=== PATIENT | male | born 1940 | race Caucasian/White ===

== ENCOUNTER → 2017-12-04 | Outpatient (CLI) | payer OTHER ==
[~2017-12-04] MED LIST: ACETAMINOPHEN-1 EAC1 PO; AMBIEN PO; FLOMAX PO; MEDROL DOSPAK21 TAB PO; NORCO 5-325 TA1 EACH PO; PERCOCET 5-3251 EACH PO; SIMVASTATIN
[2017-12-04 09:14] LABS: CREATININE 1.1 mg/dL (0.6-1.3)
== END ==
LOC: M.CT 08:00 → M.LAB 08:30
PROVIDERS: Urology
DX: C64.9 Malignant neoplasm of unspecified kidney, except renal pelvis (principal)

== ENCOUNTER → 2018-05-13 | Outpatient (CLI) | payer OTHER | LOC: M.RAD 14:29 | DX: R05 Cough (principal); Z87.891 Personal history of nicotine dependence; Z85.528 Personal history of other malignant neoplasm of kidney ==

== ENCOUNTER → 2019-10-10 | Outpatient (CLI) | payer OTHER | LOC: M.RAD 12:28 | DX: J98.4 Other disorders of lung (principal); R91.8 Other nonspecific abnormal finding of lung field ==

== ENCOUNTER 2020-03-04 13:15 | Inpatient (IN) | payer OTHER ==
[~2020-03-04] VITALS: Ht 172.7 cm; Wt 79.2 kg
[~2020-03-04 13:15] MED LIST changes: -FLOMAX PO; +FLOMAX0.4 MG PO; -SIMVASTATIN; +ZOCOR20 MG PO
[2020-03-04 13:18] VITALS: BP 178/80
--- NOTE | 2020-03-04 13:23 | NUR ---
PT REPORTS NEGATIVE COVID TEST 2 WEEKS AGO
[2020-03-04] MEDS ORDERED: LEVAQUIN 500 M500 M3 PO (13:29)
--- NOTE | 2020-03-04 13:29 | NUR ---
PT WAS ON LEVOFLOXACIN, DOXYCYCLINE, AND PREDNISONE BUT WAS TOLD BY PHYSICIAN TO STOP A FEW DAYS AGO
[2020-03-04 13:43] LABS: ABSOLUTE EOSINOPHILS 0.2 thou/uL (0.0-0.7); ABSOLUTE LYMPHOCYTES 1.2 thou/uL (0.8-5.3); ABSOLUTE MONOCYTES 0.7 thou/uL (0.0-1.2); ABSOLUTE NEUTROPHILS 7.5 thou/uL (1.6-8.1); BASOPHILS 0.2 %; EOSINOPHILS 1.9 %; HEMATOCRIT 41.7 % (42.0-52.0); HEMOGLOBIN 14.3 gm/dL (14.0-18.0); LYMPHOCYTES 12.3 %; MCH 30.4 pg (26.0-34.0); MCHC 34.3 g/dL (28.0-37.0); MCV 88.5 fL (80.0-100.0); MONOCYTES 7.1 %; NUCLEATED RBCS 0 /100WBC; PLATELET COUNT* 142 thou/uL (150-400); POLYS 78.5 %; RBC 4.72 mil/uL (4.50-6.00); RDW-CV 14.3 % (10.5-14.5); WBC 9.6 thou/uL (4.0-11.0)
[2020-03-04 13:54] LABS: CALCIUM 8.3 mg/dL (8.5-10.1); CREATININE 1.1 mg/dL (0.6-1.3)
[2020-03-04 13:56] LABS: APTT 23.5 Seconds (25.0-31.3); PROTIME 10.7 Seconds (9.20-11.50)
[2020-03-04 14:08] LABS: ALBUMIN 3.1 g/dL (3.4-5.0); CK-MB MASS 0.8 ng/mL (<0.5-3.6); MAGNESIUM 2.1 mg/dL (1.8-2.4); TOTAL BILIRUBIN 0.4 mg/dL (<0.1-1.0); TOTAL PROTEIN 6.6 g/dL (6.4-8.2)
[2020-03-04 19:18] VITALS: BP 141/70
[2020-03-04 19:58] VITALS: BP 141/70
[2020-03-04 20:30] VITALS: BP 147/76
[2020-03-05] VITALS: BP 147/66
[2020-03-05 05:44] VITALS: BP 151/76
[2020-03-05 05:46] LABS: HEMATOCRIT 44.2 % (42.0-52.0); HEMOGLOBIN 14.9 gm/dL (14.0-18.0); MCH 30.1 pg (26.0-34.0); MCHC 33.7 g/dL (28.0-37.0); MCV 89.1 fL (80.0-100.0); MPV 8.6 fl. (7.2-11.1); NUCLEATED RBCS 0 /100WBC; PLATELET COUNT* 163 thou/uL (150-400); RBC 4.96 mil/uL (4.50-6.00); RDW-CV 14.4 % (10.5-14.5)
[2020-03-05 06:11] LABS: ALBUMIN 3.1 g/dL (3.4-5.0); CALCIUM 8.5 mg/dL (8.5-10.1); POTASSIUM 3.8 mmol/L (3.5-5.1); TOTAL BILIRUBIN 0.4 mg/dL (<0.1-1.0); TOTAL PROTEIN 6.9 g/dL (6.4-8.2)
[2020-03-05 06:45] LABS: ABSOLUTE LYMPHOCYTES 0.5 thou/uL (0.8-5.3); ABSOLUTE NEUTROPHILS 9.5 thou/uL (1.6-8.1)
[2020-03-05 06:46] LABS: PLATELET ESTIMATE ADEQUATE
--- NOTE | 2020-03-05 07:05 | NUR ---
CHANGE OF SHIFT BEDSIDE REPORT GIVEN PATIENT SEEN AT BEDSIDE, IN BED ASLEEP ASSUMED PATIENT CARE
[2020-03-05 08:00] VITALS: BP 166/71
--- NOTE | 2020-03-05 13:18 | NUR ---
Pt is A&O. Resides at home with his and dtr. Independent. No DME. No hx of HH or SNF. Goal is home at dc, no needs anticipated.
--- NOTE | 2020-03-05 15:38 | EKG ---
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 : 1940 Requested By: Christophe Sauer Order Number: [id number] MD: Fabricio Vigil Measurements Intervals [place] Rate: 83 P: 25 MA: 154 QRS: -46 QRSD: 84 T: 55 QT: 362 QTc: 426 Interpretive Statements Sinus rhythm LAD, consider left anterior fascicular block Abnormal R-wave progression, late transition No previous ECG available for comparison Electronically Signed On 03-05-2020 15:37:39 CDT by Fabricio Vigil [email or web address] <ELECTRONICALLY SIGNED> By: Fabricio Vigil MD, [facility] 03/05/20 1537 1321 1321 Fabricio Vigil MD, [facility] /EPI
[2020-03-05 17:48] VITALS: BP 153/67
[2020-03-05 17:57] VITALS: BP 149/62
[2020-03-05 20:00] VITALS: BP 160/64
[2020-03-06] VITALS: BP 143/75
[2020-03-06 04:00] VITALS: BP 151/75
--- NOTE | 2020-03-06 05:08 | NUR ---
PT SLEPT MOST OF SHIFT. ASSESSMENT DOCUMENTED. MEDS GIVEN PER E-MAR. IVS PATENT. NO REPORTS OF PAIN. PT ON 1L NC THIS SHIFT. MRSA SWAB OBTAINED. WILL CONTINUE WITH PLAN OF CARE.
[2020-03-06 08:00] VITALS: BP 154/69
[2020-03-06] MEDS ORDERED: CEFDINIR300 MG PO (09:54)
[2020-03-06] MEDS ORDERED: MUCINEX600 MG PO (09:54)
[2020-03-06 11:06] VITALS: BP 154/69
[2020-03-06 11:08] LABS: ANA INTERPRETATION Negative (Negative); ANTI-DNA SCREEN <1 IU/mL (0-9); ANTI-RNP <0.2 AI (0.0-0.9)
--- NOTE | 2020-03-06 11:28 | NUR ---
PT VS CHARTED, A&0X4, NC@1L, UP AD LUBNA, HOURLY ROUNDING PERFORMED, POSSESSIONS AND CALL LIGHT WITHIN REACH, KOBUK, REC DISCHARGE ORDERS, REVIEWED WITH PATIENT, SCRIPTS AND CARENOTES GIVEN, QUESTIONS ANSWERED, PATIENT TAKEN IN WHEELCHAIR TO EXIT BY NURSING STAFF, PICKED UP BY DAUGHTER IN FAMILY CAR
[2020-03-06 12:04] VITALS: BP 134/65
--- NOTE | 2020-03-07 15:54 | CON ---
[address] [address] CONSULTATION Name: QUIQUE SCHULTZ Room: [address] IN M.R.#: [id number] Admission: 03/04/20 Attend Phys: Nelson Bergman Discharge: 03/06/20 Date of : 40 Report #: [id number] THIS REPORT FOR: //name// cc: Musa Maurer Russell J. DO ~ THIS REPORT FOR: //name// CC: Musa Chambers DATE OF SERVICE: 03/05/2020 CONSULT REQUESTED BY: Dr. Chambers. INDICATION FOR CONSULTATION: Persistent pulmonary infiltrate. HISTORY OF PRESENT ILLNESS: An 80-year-old gentleman who has a history of a right upper lobe peripheral infiltrate. I have a chest x-ray available from 09/2019, which is about 6 months ago, and this infiltrate is subtle, but certainly present on this x-ray. His previous x-rays do not show this infiltrate from 2018. The patient since then has been seen by Dr. Rodrigues and has received broad-spectrum antibiotics as an outpatient. He was treated with doxycycline in January and subsequently has received levofloxacin as well. According to the record at some point, the patient also received a Z-Marquis. The patient was not able to recall previous therapies since September. The patient reports that he has had CAT scans performed at diagnostic imaging and that based on these CAT scans, he was recommended a biopsy likely a CT-guided biopsy towards the end of this month; however, the patient due to persistent symptoms decided to come to this hospital. The patient appears to have presented with persistent complaints and not an acute deterioration in his complaints. He does report shortness of breath. He does report cough, there is not much sputum. He per the records also initially had chest pain; however, the patient did not have this complaint for me at this time. He does not have upper respiratory complaints. There is no swelling of lower extremities. The patient has had some sleep complaints, which are longstanding. The patient is hard of hearing and provides a limited history or review of systems for 12 points, however, is negative except as mentioned above. PAST MEDICAL HISTORY: Hyperlipidemia, prostatism, right eye cataract, retinal surgery. He has had pneumonia in the past as well. At one point, had a renal biopsy, the reason why renal biopsy is not known to me at this time. Persistent infiltrates as mentioned above. SOCIAL HISTORY: He denies any history of smoking for the last 40 years. He says he was an occasional smoker before. No known history of heavy alcohol use [place] [address] CONSULTATION Name: QUIQUE SCHULTZ Room: [address] IN M.R.#: [id number] Admission: 03/04/20 Attend Phys: Nelson Bergman Discharge: 03/06/20 Date of : 40 Report #: [id number] CURRENT MEDICATIONS: List in [facility] reviewed. HOME MEDICATIONS: List also in [facility] reviewed, also see discussion above. ALLERGIES: NAPROXEN. PHYSICAL EXAMINATION: GENERAL: He is alert, awake and oriented, does not appear to be in any distress at this time. VITAL SIGNS: Has a pulse of 78 and a blood pressure of 166/71. His O2 saturation is maintained in the low 90s with a respiratory rate around 16-18. He is afebrile with a temperature of 36.4. Body mass index is 26.6. HEENT: Head is normocephalic and atraumatic. Pupils are equal and reactive. There is no throat erythema. Airway is Mallampati 3. NECK: Does not show raised JVP, asymmetry, mass or lymph nodes. CHEST: Symmetrical expansion on inspection and palpation. On auscultation, chest is essentially clear. HEART: Regular, no murmur. ABDOMEN: Soft and nontender. EXTREMITIES: Lower extremities, no edema, no calf tenderness. SKIN: Dry and intact. NEUROLOGICAL: He did move all extremities bilaterally, equally and spontaneously. There is no focal deficit identified. LABORATORY DATA: The patient's CT chest is reviewed and I in fact called and discussed with radiologist as well. There is an extensive peripheral infiltrate in the right lung, primarily in the right upper lobe. Compared with the x-ray performed in September, there is significant worsening in this infiltrate. I do not have other imaging he has had performed at diagnostic imaging in between available at this time. The patient's CBC as well as chemistries are in [facility] and these are reviewed. Coagulation studies also in [facility] reviewed. There is an OLIVER profile, which is pending. CT chest as above does not show any evidence of pulmonary emboli. His D-dimer is also not elevated. ASSESSMENT AND PLAN: 1. Persistent right upper lobe infiltrate. The location of this infiltrate is such that I do not feel that it will be possible to biopsy it using a regular bronchoscopy. This infiltrate could, however, be approached for biopsy either via CT-guided biopsy or with bronchoscopy with navigation. A regular bronchoscopy, however, could be done to obtain cultures. I did review with our radiologist and I requested that we obtain films from diagnostic imaging electronically and I am told that we would likely have these images available tomorrow. I will review these images and also discuss further with the radiologist and then plan as to how to proceed further. At this time, considering that the possibility of an adenocarcinoma in situ, which was [facility] [address] [place] [address] CONSULTATION Name: QUIQUE SCHULTZ Ilya Room: [address] IN [facility].#: [id number] Admission: 03/04/20 Attend Phys: Nelson Bergman Discharge: 03/06/20 Date of : 40 Report #: [id number] previously called bronchoalveolar cell carcinoma, needs to be considered. Therefore, I am inclined to request a CT-guided biopsy; however, we will review films first tomorrow and then advise further. Meanwhile, we will continue with current broad-spectrum antibiotics. 2. Shortness of breath, I agree with corticosteroids; however, I did cut down the dose and will add nebulized bronchodilators. 3. Deep vein thrombosis prophylaxis. I suggest sequential compression devices as well as ambulation. If we do not proceed with a biopsy immediately, then I will go ahead and order Lovenox. Thanks for this consultation. <ELECTRONICALLY SIGNED> By: Nando Temple MD 03/07/20 1554 1659 2024Apablo Temple MD /nt
--- NOTE | 2020-03-15 14:35 | NUR ---
During P2P Dr Gricelda KELLOGG would not approve Inpatient rate but Stated the case can be billed as Observation.
[2020-03-15] MEDS ORDERED: CIPRO500 M1 PO (14:37)
[2020-03-15] MEDS ORDERED: DORYX MPC120 MG PO (14:38)
[2020-03-15] MEDS ORDERED: PREDNISONE 5 MG5 M1 (14:38)
[2020-03-15] MEDS ORDERED: XANAX1 MG PO (14:39)
[2020-03-15] MEDS ORDERED: CARDURA4 MG PO (14:39)
[2020-03-15] MEDS ORDERED: COZAAR 25 MG TA25 M1 (14:40)
[2020-03-15] MEDS ORDERED: PROSCAR 5MG TABL5 M1 PO (14:40)
[2020-03-15] MEDS ORDERED: LOVASTATIN 20 M20 MG PO (14:40)
[2020-03-15] MEDS ORDERED: SERTRALINE HCL100 MG PO (14:40)
[2020-03-20] MEDS ORDERED: FLORASTOR250 MG PO (15:33)
[2020-03-20] MEDS ORDERED: ACETYLCYST200 MG/1 M PO (15:33)
[2020-03-20] MEDS ORDERED: IPRAT-ALBUT 0.5-3 ML INH (15:33)
[2020-03-20] MEDS ORDERED: PANTOPRAZOLE SO40 M1 PO (15:33)
[2020-03-20] MEDS ORDERED: LEVAQUIN 7750 MG/152 IV (15:33)
[2020-03-22] MEDS ORDERED: COMBIVENT RESPIM4 GM INH (16:31)
[2020-03-22] MEDS ORDERED: MEDROLDOSEPACK PO (16:31)
== END 2020-03-06 14:45 | disposition home or self-care (01) | DRG 193 ==
LOC: M.ERS 13:15 → M.2W 15:34 → M.TBA-ER 15:34 → M.2W 20:27
PROVIDERS: Family Medicine; Pediatrics; ADMIT Internal Medicine; ATTEND Internal Medicine
DX: J15.9 Unspecified bacterial pneumonia (principal); J96.01 Acute respiratory failure with hypoxia; D02.20 Carcinoma in situ of unspecified bronchus and lung; E78.5 Hyperlipidemia, unspecified; N40.0 Benign prostatic hyperplasia without lower urinary tract symptoms; E78.00 Pure hypercholesterolemia, unspecified; Z98.41 Cataract extraction status, right eye; Z87.01 Personal history of pneumonia (recurrent); Z79.899 Other long term (current) drug therapy; Z88.6 Allergy status to analgesic agent

== ENCOUNTER → 2020-03-12 | Outpatient (CLI) | payer OTHER ==
[~2020-03-12] MED LIST changes: +ACETYLCYST200 MG/1 M PO; +CARDURA4 MG PO; +CEFDINIR300 MG PO; +CIPRO500 M1 PO; +COMBIVENT RESPIM4 GM INH; +COZAAR 25 MG TA25 M1; +DORYX MPC120 MG PO; +FLORASTOR250 MG PO; +IPRAT-ALBUT 0.5-3 ML INH; +LEVAQUIN 500 M500 M3 PO; +LEVAQUIN 7750 MG/152 IV; +LOVASTATIN 20 M20 MG PO; +MEDROLDOSEPACK PO; +MUCINEX600 MG PO; +PANTOPRAZOLE SO40 M1 PO; +PREDNISONE 5 MG5 M1; +PROSCAR 5MG TABL5 M1 PO; +SERTRALINE HCL100 MG PO; +XANAX1 MG PO
== END ==
LOC: M.CT 08:23
PROVIDERS: ATTEND Internal Medicine Critical Care Medicine
DX: K80.20 Calculus of gallbladder without cholecystitis without obstruction (principal); J18.9 Pneumonia, unspecified organism

== ENCOUNTER → 2020-03-28 | Outpatient (CLI) | payer OTHER ==
[~2020-03-28] MED LIST changes: +FLUCONAZOLE 10100 MG PO; +LEVAQUIN 500 M500 M1 PO; +PREDNISONE 10 M10 MG PO
[2020-03-28 13:40] LABS: HEMATOCRIT 43.5 % (42.0-52.0); MCHC 34.5 g/dL (28.0-37.0); MCV 87.1 fL (80.0-100.0); MPV 7.7 fl. (7.2-11.1); RDW-CV 14.2 % (10.5-14.5); WBC 12.2 thou/uL (4.0-11.0)
[2020-03-28 13:47] LABS: APTT 23.8 Seconds (25.0-31.3); PROTIME 10.7 Seconds (9.20-11.50)
--- NOTE | 2020-03-30 17:10 | PATH ---
[address] [address] PATHOLOGY RPT PROCEDURE Name: QUIQUE CAMACHO [facility] [id number] Admission: 03/28/20 Date of : 40 Discharge: Report #: [id number] Path Case #: [id number] [facility] Accession Number: [id number] . 01 Material submitted: . lung - RIGHT LUNG MASS. Modifiers: right . 01 Clinical history: . Adenocarcinoma question, lung mass . 02 Diagnosis: "R lung mass", needle biopsy: - ADENOCARCINOMA, WELL-DIFFERENTIATED. (SEE COMMENT) (CLW:dusty; 03/30/2020) S 03/30/2020 1427 Local . 02 Comment: The adenocarcinoma has a focal lepidic pattern. Clinical and radiographic correlation is recommended. The case is co-review with Dr. Arian Eugene. The case is discussed with Kerrie in the office of Dr. Musa Maurer on 03/30/2020 at approximately 2:00 PM. . . 02 Electronically signed: . Tasha Neville MD, Pathologist NPI- [id number] . 01 Gross description: . The specimen is received in formalin, labeled "Quique Camacho R lung mass" and consists of multiple delicate needle cores of mariscal-pink tissue measuring 1.1 x 0.3 x 0.1 cm in aggregate which are entirely submitted in A1. (SDY; 03/29/2020) SYU/SYU 03/29/2020 1334 Local . 02 Pathologist provided ICD-10: C34.91 . 02 CPT . 571249 Specimen Comment: A courtesy copy of this report has been sent to [phone], [phone] Specimen Comment: [id number] Specimen Comment: Report sent to / DR MAURER Performed at: [address], [place] [id number] MD Musa Harley MD Phone: [phone] [place] [address] PATHOLOGY RPT PROCEDURE Name: QUIQUE CAMACHO Room: [facility]DA Bee#: [id number] Admission: 03/28/20 Date of : 40 Discharge: Report #: [id number] Path Case #: [id number] Performed at: 02 [facility] [address], [place], [place] [id number] MD Kan Cobb MD Phone: [phone]
== END ==
LOC: M.CT 03-20 16:19 → M.INT 03-26 08:30
PROVIDERS: Radiology Diagnostic Radiology; ATTEND Radiology Vascular & Interventional Radiology
DX: R91.8 Other nonspecific abnormal finding of lung field (principal); C34.91 Malignant neoplasm of unspecified part of right bronchus or lung; J44.1 Chronic obstructive pulmonary disease with (acute) exacerbation; Z79.899 Other long term (current) drug therapy; Z98.890 Other specified postprocedural states

== ENCOUNTER 2020-04-04 13:37 | Inpatient (IN) | payer OTHER ==
[~2020-04-04] VITALS: Ht 172.7 cm; Wt 86.2 kg
--- NOTE | ~2020-04-04 | CON ---
[address] [address] CONSULTATION Name: QUIQUE SCHULTZ Room: [address] IN M.R.#: [id number] Admission: 04/04/20 Attend Phys: Nelson Bergman Discharge: Date of : 40 Report #: [id number] THIS REPORT FOR: //name// cc: Musa Maurer Russell J. DO ~ THIS REPORT FOR: //name// CC: Musa Chambers DATE OF SERVICE: 04/08/2020 REASON FOR CONSULTATION: Lung cancer. 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 He apparently had bronchoscopy done recently by Dr. Temple, wash showed malignant cells, most likely non-small cell lung cancer. He also has right lung mass. Biopsy was done for definite diagnosis. CT-guided biopsy on 04/05/2020 was done. Pathology shows well-differentiated adenocarcinoma. Apparently, he developed progressive shortness of breath. He is admitted to the hospital with pneumothorax post procedure. He had a chest tube placed. Oncology consult is requested. The patient is not referred to oncologist yet. He is doing okay. He does not have complaints of weight loss. Denies hemoptysis. Denies headaches. PAST MEDICAL HISTORY: Significant for hyperlipidemia. 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 SOCIAL HISTORY: . His is a patient of mine. He is an occasional smoker, discontinued smoking 4 days ago. Does not drink alcohol excessively. FAMILY HISTORY: Noncontributory. PHYSICAL EXAMINATION: GENERAL: Reveals a well-developed, well-nourished man, not in acute distress. VITAL SIGNS: Blood pressure 156/87, heart rate is 76, temperature 97.6, respirations 16. HEENT: Does not reveal thrush. HEART: Normal S1, S2. LUNGS: Coarse bilaterally. ABDOMEN: Soft. LYMPHATICS: There is no supraclavicular or axillary lymphadenopathy. MENTAL STATUS: [place] [address]. [place] [address] CONSULTATION Name: SONIAQUIQUE SABILLON Ilya Room: [address]#: [id number] Admission: 04/04/20 Attend Phys: Nelson Bergman Discharge: Date of : 40 Report #: [id number] SKIN: No rash. LABORATORY DATA: White count 16.0, hemoglobin 12.6, platelets 196. Sodium 141, potassium 4.6, BUN 22, creatinine 1.3. COVID-19 test negative. Biopsy of right lung mass shows well-differentiated adenocarcinoma. ASSESSMENT AND PLAN: Non-small cell lung cancer. We will order a PET scan as an outpatient when the patient is discharged from the hospital. Dr. Giron will follow up the patient tomorrow. Molecular studies will be ordered for biopsy. Thank you very much for allowing us to participate in the care of this patient. By: [id number] [id number] Dwyer MD /nt
[2020-04-04 13:45] VITALS: BP 197/82
[2020-04-04 14:04] LABS: BE 1.3 mmol/L (-2 to +3); pH 7.465 (7.340-7.450)
[2020-04-04 14:38] LABS: ABSOLUTE BASOPHILS 0.1 thou/uL (0.0-0.2); ABSOLUTE EOSINOPHILS 0.3 thou/uL (0.0-0.7); ABSOLUTE LYMPHOCYTES 0.8 thou/uL (0.8-5.3); ABSOLUTE MONOCYTES 0.7 thou/uL (0.0-1.2); ABSOLUTE NEUTROPHILS 9.6 thou/uL (1.6-8.1); BASOPHILS 0.8 %; EOSINOPHILS 2.5 %; HEMATOCRIT 40.9 % (42.0-52.0); HEMOGLOBIN 13.7 gm/dL (14.0-18.0); LYMPHOCYTES 7.2 %; MCH 29.7 pg (26.0-34.0); MCHC 33.5 g/dL (28.0-37.0); MCV 88.5 fL (80.0-100.0); MONOCYTES 5.7 %; MPV 8.3 fl. (7.2-11.1); NUCLEATED RBCS 0 /100WBC; PLATELET COUNT* 183 thou/uL (150-400); POLYS 83.8 %; RBC 4.62 mil/uL (4.50-6.00); RDW-CV 14.5 % (10.5-14.5); WBC 11.5 thou/uL (4.0-11.0)
[2020-04-04 14:50] LABS: CALCIUM 8.8 mg/dL (8.5-10.1); CREATININE 1.2 mg/dL (0.6-1.3); POTASSIUM 4.4 mmol/L (3.5-5.1)
[2020-04-04 14:51] LABS: APTT 22.9 Seconds (25.0-31.3); PROTIME 10.7 Seconds (9.20-11.50)
[2020-04-04 15:04] LABS: TOTAL BILIRUBIN 0.5 mg/dL (<0.1-1.0); TOTAL PROTEIN 6.8 g/dL (6.4-8.2)
[2020-04-04 18:18] VITALS: BP 104/49
[2020-04-04 20:14] VITALS: BP 141/65
--- NOTE | 2020-04-04 20:52 | NUR ---
PT'S JOHNSON, CHANGE, NAIL CLIPPERS, AND KNIVES TO BE GIVEN TO SECURITY.
[2020-04-04 21:00] VITALS: BP 126/61
[2020-04-04 22:00] VITALS: BP 139/71
[2020-04-04 23:01] VITALS: BP 147/69
[2020-04-05] VITALS (22 sets, daily range): BP systolic 120–150; BP diastolic 50–72
[2020-04-05 05:05] LABS: HEMATOCRIT 39.5 % (42.0-52.0); HEMOGLOBIN 13.8 gm/dL (14.0-18.0); MCH 30.3 pg (26.0-34.0); MCHC 34.8 g/dL (28.0-37.0); MCV 87.1 fL (80.0-100.0); MPV 8.2 fl. (7.2-11.1); NUCLEATED RBCS 0 /100WBC; PLATELET COUNT* 194 thou/uL (150-400); RBC 4.54 mil/uL (4.50-6.00); RDW-CV 14.3 % (10.5-14.5); WBC 8.5 thou/uL (4.0-11.0)
[2020-04-05 05:18] LABS: ALBUMIN 2.9 g/dL (3.4-5.0); CALCIUM 8.3 mg/dL (8.5-10.1); CREATININE 1.3 mg/dL (0.6-1.3); MAGNESIUM 1.9 mg/dL (1.8-2.4); POTASSIUM 3.7 mmol/L (3.5-5.1); TOTAL BILIRUBIN 0.5 mg/dL (<0.1-1.0); TOTAL PROTEIN 6.7 g/dL (6.4-8.2)
[2020-04-05 05:52] LABS: ABSOLUTE LYMPHOCYTES 0.5 thou/uL (0.8-5.3); ABSOLUTE MONOCYTES 0.1 thou/uL (0.0-1.2); ABSOLUTE NEUTROPHILS 7.9 thou/uL (1.6-8.1); ANISOCYTOSIS 1+; PLATELET ESTIMATE ADEQUATE; POIKILOCYTOSIS 1+
--- NOTE | 2020-04-05 06:48 | NUR ---
PT. TRANSFER FROM TELEMETRY FLOOR TO ICU BED 1 AT 1999. ADMISSION NOT COMPLETED ON TELE FLOOR, SEE ADMISSION ASSESSMENT. ALERT AND ORIENTED MALE. COVID SPECIMAN OBTAINED BY THIS RN, AWAITING RESULTS. REMAINS IN ENHANCED PRECAUTIONS. HARD OF HEARING, HEARING AIDS WITH PATIENT BUT HE STATES "THEY DONT WORK WELL" AND CHOSE NOT TO PUT HEARING AIDS IN. PT. INCREASED TO 10L HI-JAN, DOWN TO 9L HI-JAN AT THIS TIME. WILL CONTINUE TO MONITOR.
[2020-04-05 08:28] LABS: URINE BILIRUBIN NEGATIVE (Negative); URINE BLOOD TRACE (Negative); URINE CLARITY CLEAR; URINE COLOR YELLOW; URINE GLUCOSE-RANDOM NEGATIVE (Negative); URINE KETONES 1+ (Negative); URINE LEUKOCYTES-REFLEX NEGATIVE (Negative); URINE NITRITE-REFLEX NEGATIVE (Negative); URINE PROTEIN NEGATIVE (Negative); URINE UROBILINOGEN 0.2 E.U./dl (0.2-1.0)
--- NOTE | 2020-04-05 13:20 | EKG ---
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1940 Requested By: Christophe Sauer Order Number: [id number] MD: Lj Dela Cruz Measurements Intervals [place] Rate: 96 P: 56 DC: 162 QRS: -21 QRSD: 85 T: 61 QT: 369 QTc: 467 Interpretive Statements Sinus rhythm Ventricular premature complex Borderline left axis deviation Baseline wander in lead(s) II,III,aVF,V5 Compared to ECG 03/15/2020 14:30:23 Ventricular premature complex(es) now present Electronically Signed On 04-05-2020 13:20:01 CDT by Lj Dela Cruz [email or web address] <ELECTRONICALLY SIGNED> By: Lj Dela Cruz MD, FAC 04/05/20 1320 1439 1439 Lj Dela Cruz MD, [facility] /EPI
--- NOTE | 2020-04-05 15:18 | NUR ---
ICU rounds: Chest tube placed for ride side pneumothorax. Covid pending. Lung CA dx last week. CM left VM for Pt's to complete assessment, awaiting call back.
--- NOTE | 2020-04-05 17:32 | NUR ---
PT IS A/O X4,VSS,O2 TITRATED DOWN TO 5L O2 NC.PT REMAINS TELEMETRY STATUS.RIGHT CHEST TUBE PLACED THIS AM WITH NO COMPLICATIONS-PATENT WITH SLIGHT TIDALING PRESENT.UA COLLECTED.MRSA OF NARES COLLECTED.ISOLATION MAINTAINED UNTIL COVID RESULTS.PAIN MANAGED WELL WITH PO MEDICATIONS.IV ANTIBIOTICS GIVEN.PT INFORMED OF PLAN OF CARE AND COMMUNICATES UNDERSTANDING.WILL CONTINUE TO MONITOR FOR DURATION OF SHIFT.
[2020-04-05 17:48] LABS: CALCIUM 8.9 mg/dL (8.5-10.1); CREATININE 1.5 mg/dL (0.6-1.3); POTASSIUM 3.3 mmol/L (3.5-5.1)
[2020-04-06] VITALS (22 sets, daily range): BP systolic 115–161; BP diastolic 44–82
[2020-04-06 03:40] LABS: ABSOLUTE BASOPHILS 0.1 thou/uL (0.0-0.2); ABSOLUTE LYMPHOCYTES 0.4 thou/uL (0.8-5.3); ABSOLUTE MONOCYTES 0.6 thou/uL (0.0-1.2); ABSOLUTE NEUTROPHILS 19.1 thou/uL (1.6-8.1); BASOPHILS 0.4 %; HEMATOCRIT 37.9 % (42.0-52.0); HEMOGLOBIN 12.7 gm/dL (14.0-18.0); LYMPHOCYTES 1.9 %; MCH 29.5 pg (26.0-34.0); MCHC 33.5 g/dL (28.0-37.0); MCV 88.1 fL (80.0-100.0); MONOCYTES 2.8 %; MPV 8.2 fl. (7.2-11.1); NUCLEATED RBCS 0 /100WBC; PLATELET COUNT* 202 thou/uL (150-400); POLYS 94.9 %; RDW-CV 14.6 % (10.5-14.5); WBC 20.1 thou/uL (4.0-11.0)
[2020-04-06 03:52] LABS: ALBUMIN 2.6 g/dL (3.4-5.0); CALCIUM 8.6 mg/dL (8.5-10.1); CREATININE 1.2 mg/dL (0.6-1.3); MAGNESIUM 2.2 mg/dL (1.8-2.4); POTASSIUM 4.2 mmol/L (3.5-5.1); TOTAL BILIRUBIN 0.3 mg/dL (<0.1-1.0); TOTAL PROTEIN 5.9 g/dL (6.4-8.2)
--- NOTE | 2020-04-06 07:14 | NUR ---
ASSESSMENT CHARTED. CHEST TUBE REMAINS IN PLACE, TIDALING. PATIENT'S COVID SWAB RESULTS CAME BACK NEGATIVE. AWAITING PHYSICIAN ORDERS TO D/C ISOLATION. NO SIGNIFICANT EVENTS THIS SHIFT. VSS
[2020-04-06 12:37] LABS: CHOLESTEROL 161 mg/dL (<200); HDL CHOLESTEROL 48 mg/dL (>40); LDL CHOLESTEROL 104 mg/dL (<100); SERUM ASSESSMENT Clear; TC:HDL 3.4 Ratio (Not establshd); TRIGLYCERIDE 47 mg/dL (<150); VLDL 9 mg/dL (<40)
--- NOTE | 2020-04-06 15:39 | NUR ---
ICU rounds: Tele status. Doing good. Pt on 4-5L o2. Covid negative. Pt is A&O, but [employer]. Resides at home with his and dtr. Pt wears home o2, provided through [employer]. No hx of HH or SNF. Pt states that he has lung CA. Goal is home at dc. Pt is hopeful not to have any dc needs.
--- NOTE | 2020-04-06 17:09 | NUR ---
PT IS A/O X4,VSS, REMAINS ON 6L O2 NC AND TITRATING DOWN POSSIBLE.PT HAS NON PRODUCTIVE COUGH WITH OCCASIONAL COUGHING EPISODES THAT REQUIRE A TEMPORARY INCREASE IN O2 DEMAND.NO C/O PAIN THIS SHIFT.RIGHT CHEST TUBE SECURE AND PATENT WITH SLIGHT TIDALING PRESENT-CHEST TUBE IS POSITIONAL AND HAS OCCASIONAL BUBBLES.COVID NEGATIVE AND REMOVED FROM ISOLATION PER ORDERS.FAMILY NOTIFIED OF ISOLATION DC AND TOLD THE VISITOR POLICIES.DAUGHTER IS REQUESTING THAT OVERSEES FATHERS CARE "BECAUSE SHE HAS HEARD GOOD THINGS" .PT WILL BE NPO AT MIDNIGHT FOR RENAL US TOMORROW.WILL CONTINUE TO MONITOR FOR DURATION OF SHIFT.
[2020-04-06 17:11] LABS: CALCIUM 8.2 mg/dL (8.5-10.1); CREATININE 1.1 mg/dL (0.6-1.3); POTASSIUM 4.2 mmol/L (3.5-5.1)
[2020-04-07] VITALS (16 sets, daily range): BP systolic 92–157; BP diastolic 42–98
[2020-04-07 03:58] LABS: ABSOLUTE LYMPHOCYTES 0.4 thou/uL (0.8-5.3); ABSOLUTE MONOCYTES 0.4 thou/uL (0.0-1.2); ABSOLUTE NEUTROPHILS 15.3 thou/uL (1.6-8.1); HEMATOCRIT 37.5 % (42.0-52.0); HEMOGLOBIN 12.9 gm/dL (14.0-18.0); LYMPHOCYTES 2.3 %; MCH 30.2 pg (26.0-34.0); MCHC 34.4 g/dL (28.0-37.0); MCV 87.6 fL (80.0-100.0); MONOCYTES 2.5 %; MPV 7.9 fl. (7.2-11.1); NUCLEATED RBCS 0 /100WBC; PLATELET COUNT* 196 thou/uL (150-400); POLYS 95.2 %; RBC 4.27 mil/uL (4.50-6.00); RDW-CV 15.4 % (10.5-14.5)
[2020-04-07 04:19] LABS: ALBUMIN 2.6 g/dL (3.4-5.0); CALCIUM 8.2 mg/dL (8.5-10.1); CREATININE 1.3 mg/dL (0.6-1.3); POTASSIUM 4.6 mmol/L (3.5-5.1); TOTAL BILIRUBIN 0.4 mg/dL (<0.1-1.0)
--- NOTE | 2020-04-07 07:31 | NUR ---
ASSESSMENT CHARTED. NO SIGNIFICANT EVENTS THIS SHIFT. PATIENT SLEPT COMFORTABLY ALL SHIFT
--- NOTE | 2020-04-07 18:37 | NUR ---
PT OUT OF BED, STB ASSIST, SAT IN A CHAIR WHOLE DAY. RT SIDE CHEST TUBE INSITU, -20 SUCTION CONTD. VSS. O2 SUPPORT NC 4L/MIN. TOLERATING DIET. BM x2 THIS SHIFT. REPORT GIVEN TO JOELLEN YA. UPDATED.
--- NOTE | 2020-04-08 07:31 | NUR ---
No acute event this shift. Pt still having SOA, at shift change pt on 2L high flow, O2 sat at mid 80's - bump O2 supplement to 4L, still at on low 90's. Denies pain. Had BM last night. Antibiotic given per nov. Call light within reach. Will continue to monitor.
[2020-04-08 10:24] VITALS: BP 156/87
[2020-04-08 15:08] LABS: ABSOLUTE LYMPHOCYTES 0.4 thou/uL (0.8-5.3); ABSOLUTE MONOCYTES 0.5 thou/uL (0.0-1.2); ABSOLUTE NEUTROPHILS 10.4 thou/uL (1.6-8.1); HEMATOCRIT 39.9 % (42.0-52.0); HEMOGLOBIN 13.4 gm/dL (14.0-18.0); LYMPHOCYTES 3.7 %; MCH 29.8 pg (26.0-34.0); MCHC 33.7 g/dL (28.0-37.0); MCV 88.4 fL (80.0-100.0); MONOCYTES 4.2 %; MPV 8.5 fl. (7.2-11.1); NUCLEATED RBCS 0 /100WBC; PLATELET COUNT* 188 thou/uL (150-400); POLYS 92.1 %; RBC 4.51 mil/uL (4.50-6.00); RDW-CV 15.4 % (10.5-14.5); WBC 11.3 thou/uL (4.0-11.0)
[2020-04-08 15:35] LABS: ALBUMIN 2.6 g/dL (3.4-5.0); ALKALINE PHOSPHATASE 65 U/L (46-116); ANION GAP 11 mmol/L (7-16); BUN 15 mg/dL (7-18); CALCIUM 8.6 mg/dL (8.5-10.1); CHLORIDE 102 mmol/L (98-107); CO2 28 mmol/L (21-32); CREATININE 1.1 mg/dL (0.6-1.3); GLUCOSE 154 mg/dL (70-99); NT-PRO BRAIN NAT PEPTIDE 480 pg/mL (<300); POTASSIUM 4.1 mmol/L (3.5-5.1); SGOT 19 U/L (15-37); SGPT 27 U/L (30-65); SODIUM 141 mmol/L (136-145); TOTAL BILIRUBIN 0.3 mg/dL (<0.1-1.0); TOTAL PROTEIN 5.9 g/dL (6.4-8.2)
[2020-04-08 18:10] VITALS: BP 189/91
[2020-04-08 21:54] VITALS: BP 171/81
--- NOTE | 2020-04-09 07:48 | NUR ---
PATIENT HAS RESTED OFF AND ON DURING THE NIGHT. VSS ON 4L 02 VIA NASAL CANNULA. LUNGS SOUNDS-WHEEZY AND COARSE. CHEST TUBE TO RIGHT SIDE OF CHEST IN PLACE AND SEALED. MEDICATIONS GIVEN ORDERED AND CHARTED. PATIENT UP WITH SBA TO THE BATHROOM. PATIENT HAD LARGE BOWEL MOVEMENT DURING THE NIGHT. IV IN RIGHT FOREARM-SL. IV IN LEFT FOREARM-SL. IV ABT'S GIVEN WITHOUT ANY ADVERSE SIDE EFFECTS NOTED. HOURLY ROUNDS MADE. WILL CONTINUE WITH PLAN OF CARE AND NURSING TO MONITOR.
[2020-04-09 08:19] VITALS: BP 163/78
[2020-04-09 13:59] LABS: CALCIUM 8.9 mg/dL (8.5-10.1); CREATININE 1.1 mg/dL (0.6-1.3); MAGNESIUM 2.3 mg/dL (1.8-2.4); POTASSIUM 4.5 mmol/L (3.5-5.1)
[2020-04-09 15:55] VITALS: BP 166/76
--- NOTE | 2020-04-09 17:24 | NUR ---
A&O X 4. UP TO CHAIR WITH NURSE ASSIST, TOLERATING SITTING UP WELL. IV RT AND LEFT ARM INTACT, NO S/S OF INFECTION NOTED. BOTH PATENT AND FLUSHES WITHOUT DIFFICULTY. CHEST TUBE WITHOUT DRAINAGE TODAY. CHEST TUBE CLAMPED AT 0830. CHEST TUBE SITE WITHOUT DRAINAGE. PATIENT HAS SOME SOB BUT STATES IT IS BETTER. USING 02 AT 4L PER NC. NO C/O PAIN TODAY. WILL CONTINUE TO MONITOR.
[2020-04-09 23:30] VITALS: BP 164/77
[2020-04-10 07:12] LABS: HEMATOCRIT 44.8 % (42.0-52.0); MCH 29.4 pg (26.0-34.0); MCHC 33.4 g/dL (28.0-37.0); MPV 8.3 fl. (7.2-11.1); NUCLEATED RBCS 0 /100WBC; RBC 5.08 mil/uL (4.50-6.00); RDW-CV 15.1 % (10.5-14.5); WBC 15.9 thou/uL (4.0-11.0)
[2020-04-10 07:15] LABS: PLATELET COUNT* 269 thou/uL (150-400)
[2020-04-10 07:20] LABS: CALCIUM 8.7 mg/dL (8.5-10.1); CREATININE 1.1 mg/dL (0.6-1.3); MAGNESIUM 2.1 mg/dL (1.8-2.4); POTASSIUM 3.7 mmol/L (3.5-5.1)
[2020-04-10 07:35] VITALS: BP 156/79
[2020-04-10 07:41] LABS: ABSOLUTE LYMPHOCYTES 1.7 thou/uL (0.8-5.3); ABSOLUTE MONOCYTES 0.2 thou/uL (0.0-1.2); ATYPICAL LYMPHS 1 %; METAMYELOCYTES 1 %; PLATELET ESTIMATE ADEQUATE
--- NOTE | 2020-04-10 08:12 | NUR ---
PATIENT HAS SLEPT OFF AND ON DURING THE NIGHT. VSS ON 4L 02 VIA NASAL CANNULA. MEDICATIONS GIVEN ORDERED AND CHARTED. CHEST TUBE TO RIGHT CHEST IS UNCLAMPED TO WATER SEAL WITH NO SUCTION AT THIS TIME WITH MODERATE DRAINAGE. PATIENT UP WITH SBA TO THE BATHROOM. LUNG SOUNDS ARE DIMINISHED, COARSE AND WHEEZES. PATIENT COUGHING OFF AND ON WITH MINIMAL SPUTUM. IV IN RIGHT FOREARM-SL. IV IN LEFT FOREARM-SL. IV ABT GIVEN WITHOUT ANY ADVERSE SIDE EFFECTS NOTED. PATIENT INSTRUCTED TO USE CALL LIGHT WHEN NEEDING ASSISTANCE. HOURLY ROUNDS MADE. WILL CONTINUE WITH PLAN OF CARE AND NURSING TO MONITOR.
[2020-04-10 16:00] VITALS: BP 157/71
--- NOTE | 2020-04-10 16:11 | NUR ---
PT REMAINED ALERT AND ORIENTED. PT RESTING IN CHAIR FOR MEALS. CHEST TUBE CLAMPED, POSSIBLE DC TUBE TOMORROW. FALL RISK PRECAUTIONS IN PLACE. HOURLY ROUNDING COMPLETED. WILL CONTINUE TO MONITOR.
--- NOTE | 2020-04-10 16:29 | NUR ---
[facility]UN SENT REFERRAL TO [facility]- WHO SUGGEST REFERRAL BE SENT TO [facility] D/T THEM HAVING AN EPISODIC CONTRACT W/PROVIDER. [facility] OFFERED TO [facility] REFFERAL AND CALLED TO REPORT [facility] ACCEPTED PT. D/C ORDERS NEED TO BE SENT TO [phone].
[2020-04-10 20:54] VITALS: BP 154/84
--- NOTE | 2020-04-11 05:05 | NUR ---
PT REPORTED NO PAIN OR NAUSEA. ON 5L O2. KEPT HOB ELEVATED 45 DEGREES. DEVELOPED A COUGH SINCE ARRIVING TO [facility]. IS ABLE TO GET TO RESTROOM STANDBY ASSIST. O2 SAT 92-95% ON 4-5L. RIGHT SIDE CHEST TUBE IS CLAMPED. LUNG SOUNDS DIMINISHED/COURSE. IS CONTINENT OF URINE/BOWEL. HARD OF HEARING. LAST BM 04/10/20. ALERT AND ORIENTED. PLAN IS FOR FURTHER CHEST XRAY TODAY. WILL CONTINUE TO MONITOR.
[2020-04-11 06:22] LABS: ABSOLUTE EOSINOPHILS 0.1 thou/uL (0.0-0.7); ABSOLUTE LYMPHOCYTES 1.3 thou/uL (0.8-5.3); ABSOLUTE NEUTROPHILS 10.1 thou/uL (1.6-8.1); BASOPHILS 0.4 %; EOSINOPHILS 0.5 %; HEMATOCRIT 39.9 % (42.0-52.0); HEMOGLOBIN 13.4 gm/dL (14.0-18.0); LYMPHOCYTES 10.7 %; MCH 29.3 pg (26.0-34.0); MCHC 33.5 g/dL (28.0-37.0); MCV 87.6 fL (80.0-100.0); MONOCYTES 7.9 %; MPV 7.7 fl. (7.2-11.1); NUCLEATED RBCS 0 /100WBC; PLATELET COUNT* 195 thou/uL (150-400); POLYS 80.5 %; RBC 4.56 mil/uL (4.50-6.00); RDW-CV 14.8 % (10.5-14.5); WBC 12.6 thou/uL (4.0-11.0)
[2020-04-11 06:36] LABS: CALCIUM 8.2 mg/dL (8.5-10.1); POTASSIUM 3.2 mmol/L (3.5-5.1)
[2020-04-11 07:10] VITALS: BP 146/82
[2020-04-11 16:00] VITALS: BP 158/75
--- NOTE | 2020-04-11 16:41 | NUR ---
PT REMAINED ALERT AND ORIENTED. CHEST TUBE REMOVED PER IR. FALL RISK PRECAUTIONS IN PLACE. HOURLY ROUNDING COMPLETED. WILL CONTINUE TO MONITOR.
[2020-04-11 19:54] VITALS: BP 156/91
--- NOTE | 2020-04-12 04:29 | NUR ---
PLAN IS TO DISCHARGE THURSDAY. UP AD LUBNA TO RESTROOM. ON 5L-O2. ALERT AND ORIENTED. BM YESTERDAY. NO REPORTS OF PAIN OR ISSUES. RECEIVED ALL MEDS SCHEDULED.
[2020-04-12 08:00] VITALS: BP 165/78
[2020-04-12 16:00] VITALS: BP 162/76
--- NOTE | 2020-04-12 18:29 | NUR ---
PT A&Ox4. VITALS STABLE. IV'S PATENT. UP AD LUBNA. ON 5LO2. TOLERATING DIET. DENIED PAIN. DENIED N/V. CALL LIGHT WITHIN REACH. WILL CONTINUE TO MONITOR.
[2020-04-12 20:00] VITALS: BP 171/70
[2020-04-12 20:07] LABS: CALCIUM 8.7 mg/dL (8.5-10.1); CREATININE 1.2 mg/dL (0.6-1.3); POTASSIUM 3.8 mmol/L (3.5-5.1)
--- NOTE | 2020-04-12 21:36 | CON ---
[address] [address] CONSULTATION Name: QUIQUE SCHULTZ Room: [address] IN M.R.#: [id number] Admission: 04/04/20 Attend Phys: Nelson Bergman Discharge: Date of : 40 Report #: [id number] THIS REPORT FOR: //name// cc: Musa Maurer Russell J. DO ~ THIS REPORT FOR: //name// CC: Musa Chambers DATE OF SERVICE: 04/05/2020 REQUESTING PHYSICIAN: Juan Carlos Chambers DO HISTORY OF PRESENT ILLNESS: An 80-year-old gentleman. His past medical history is as mentioned below. He had 2 recent admissions to this hospital, during which I have seen him. Please review my previous consult for further details. In summary, the patient only has a remote history of smoking. He has not been previously diagnosed with COPD. The patient has had pulmonary infiltrates, which first appeared on his chest x-ray in September. These have since then progressed despite the fact that the patient has received multiple antibiotics. The patient has recently received several antibiotics including but not limited to azithromycin, doxycycline, cefdinir as well as Levaquin. Most recently, he received Levaquin. When I had seen him previously, I had suspected that the patient's infiltrates were secondary to adenocarcinoma and not an infection and therefore, I had performed a bronchoscopy. The bronchoscopy did show non-small cell carcinoma, highly suggestive of adenocarcinoma, but the type of non-small cell carcinoma could not be determined with 100% certainty based on the bronchoscopy results and therefore, the patient did have a subsequent CT-guided biopsy which does confirm that the patient has adenocarcinoma. CT-guided biopsy was performed about a week ago. The patient had a small pneumothorax at that time and the decision was made to observe this. I have subsequently talked to the patient over the phone and he had told me that he had had some increase in shortness of breath as well as cough with sputum production. Therefore, yesterday I asked him to come see me in my office and have a chest x-ray performed. Just prior to the office visit, he did come to this hospital and had the chest x-ray performed and then came over to see me in my office. The chest x-ray shows significant extension of these infiltrates. Previously, these were primarily on the right side. These are now bilateral. Pneumothorax also was still small in size; has, however, increased in size as of yesterday. What was more significant is that when the patient walked into my office, his O2 saturation was only 77% and he was significantly short of breath. I had him sit for a while, but the highest O2 saturation I could get [place] [address] CONSULTATION Name: QUIQUE SCHULTZ Room: [address] IN .R.#: [id number] Admission: 04/04/20 Attend Phys: Nelson Bergman Discharge: Date of : 40 Report #: [id number] was 84% on room air. The patient previously has not been on supplemental oxygen. Therefore, I immediately sent him over to the Emergency Room and I called and spoke with the ER physician, Dr. Luis Sauer, as well. In the Emergency Room, the patient did have a CT chest performed, which does show an increase in size of the pneumothorax and there are extensive bilateral infiltrates. The patient overnight did require up to 9 liters of oxygen to maintain O2 saturation. He was, however, comfortable and therefore we electively placed a chest tube this morning. The patient at this time reports that he has had improvement in his shortness of breath since the chest tube was placed. He does report of cough still, he says that has been clear as well as small amounts of white sputum. He is not having chest pain. He does not have a runny nose or sore throat. He is not febrile. He does not have swelling of lower extremities. He does not have calf pain. The patient when seen yesterday was actively bronchospastic and was wheezing aloud. His wheezing has subsided as well now. I asked him 12 questions for review of systems. He answers to the negative except as above, except has had mild anxiety and minor skin lesions on his back. PAST MEDICAL HISTORY: Recently diagnosed with adenocarcinoma of the lung as above. He has had persistent infiltrates since September, but before yesterday, I feel that these have been secondary to malignancy and not infection as above. Hyperlipidemia, right eye surgery, cataract surgery, retinal surgery, previous renal biopsy performed at , has had renal cysts, prostatism, kidney stones. SOCIAL HISTORY: He reports that he was an occasional smoker, discontinued in the , has not been a smoker since then. No known history of heavy alcohol use or illegal drug use. CURRENT MEDICATIONS: List in [facility] reviewed. HOME MEDICATIONS: List in [employer] reviewed. FAMILY HISTORY: There is no pertinent family history. ALLERGIES: HE IS ALLERGIC TO OR INTOLERANT TO NAPROXEN. PHYSICAL EXAMINATION: GENERAL: He is alert, awake and oriented, does not appear to be in any distress at this time. VITAL SIGNS: He has a pulse of 89 and a blood pressure of 122/58. He is saturating 96%. He has been titrated down to 7 liters. He is afebrile with a temperature of 36.7. HEENT: Head is normocephalic and atraumatic. NECK: Does not show raised JVP, asymmetry, mass, or lymph nodes. CHEST: Symmetrical expansion on inspection and palpation. There is a chest tube in place in the right side. There is an occasional air [place] [address] CONSULTATION Name: ANTOINEQUIQUE Ilya Room: [address] IN [facility]#: [id number] Admission: 04/04/20 Attend Phys: Nelson Bergman Discharge: Date of : 40 Report #: [id number]. The patient had marked bronchospasm and was wheezing aloud yesterday. This has subsided today. Breath sounds are decreased, but I do not hear any added sounds. Breath sounds are bilaterally equal. HEART: Regular. There is no murmur. ABDOMEN: Soft and nontender. EXTREMITIES: Lower extremities show no edema, no calf tenderness. SKIN: Dry and intact. NEUROLOGICAL: Moves all extremities bilaterally equally and spontaneously with no focal deficit identified. LABORATORY DATA: The patient's CT chest with contrast performed yesterday is in [facility] [place] and is reviewed and compared with the previous CTs. In summary, there is a right-sided pneumothorax. There are bilateral extensive infiltrates, right greater than left. The patient's chest x-ray performed yesterday showed a pneumothorax as above. We just had another chest x-ray repeated now, which shows a significant reduction in the size of the pneumothorax. The patient's CBC as well as chemistries are in [facility] and these are reviewed. Elevation in creatinine to 1.3 from 1.2 yesterday in [facility] reviewed. Arterial blood gas performed yesterday, which shows acute hypoxemic respiratory failure type 1, in [facility] reviewed. COVID-19 antigen is negative, PCR is pending. MRSA PCR is pending. Cultures are pending. ASSESSMENT/PLAN: 1. Acute hypoxemic respiratory failure. In the background, the patient has adenocarcinoma. It appears that on top of this he has developed pneumonia. He has also had a right-sided pneumothorax. Further, he was actively bronchospastic yesterday. All of these are components of the etiology of his acute hypoxemic respiratory failure. There is no pulmonary emboli mentioned on the CT chest report. I do intend to discuss this further with the radiologist as well. Once the patient is out of COVID isolation provided he does come back negative, I intend to obtain an echocardiogram as well. 2. Pneumothorax. The patient has had a chest tube placed. This has significantly reduced in size. 3. Adenocarcinoma of lung. The patient does need to be followed by Oncology. We will stabilize the patient first and plan to have Oncology review later this admission. 4. Pulmonary infiltrates/pneumonia. He has significant right-sided infiltrates, which are secondary to his malignancy, but on top of this, there are new bilateral infiltrates as well, which appear to be secondary to pneumonia. Considering the patient has received multiple antibiotics recently, I decided to cover him broadly with vancomycin and Zosyn. Note that most recently, the patient received Levaquin and therefore I discontinued his Levaquin. We will see if it is possible to get a sputum. Nasal swab for MRSA was ordered and is pending at this time. Plan to continue current antibiotics for now except I noted that the creatinine is trending upwards, therefore I ordered repeat labs this evening. If the creatinine rises, then for now I do [address] [address] CONSULTATION Name: QUIQUE SCHULTZ Room: [address] IN [facility]#: [id number] Admission: 04/04/20 Attend Phys: Nelson Bergman Discharge: Date of : 40 Report #: [id number] intend to continue with MRSA coverage, but in that case I will consider switching him over to linezolid. 5. Acute bronchospasm. He was fairly significantly bronchospastic yesterday and was wheezing aloud. Note that he does not have a previous history of obstructive lung disease. The patient has been treated with nebulized bronchodilators as well as Solu-Medrol and there does appear to be a favorable response. We will continue for now and reassess tomorrow morning. 6. Clostridium difficile prophylaxis. I ordered Florastor yesterday. Considering that the patient has already received multiple antibiotics and he does need more antibiotics, his Clostridium difficile risk appears to be high and therefore, I did order 15 doses of low-dose Flagyl orally as well. 7. Deep vein thrombosis prophylaxis. We will start Lovenox. 8. Gastrointestinal prophylaxis. He is already on Protonix. The patient is critically ill at this time. Total time spent providing critical care to this patient today exceeds 40 minutes. <ELECTRONICALLY SIGNED> By: Nando Temple MD 04/12/20 2136 1443 [id number] Temple MD /nt
[2020-04-13 05:10] LABS: ABSOLUTE LYMPHOCYTES 0.4 thou/uL (0.8-5.3); ABSOLUTE MONOCYTES 0.4 thou/uL (0.0-1.2); BASOPHILS 0.1 %; HEMATOCRIT 39.1 % (42.0-52.0); HEMOGLOBIN 13.6 gm/dL (14.0-18.0); LYMPHOCYTES 3.4 %; MCH 30.5 pg (26.0-34.0); MCHC 34.8 g/dL (28.0-37.0); MCV 87.5 fL (80.0-100.0); MPV 8.2 fl. (7.2-11.1); NUCLEATED RBCS 0 /100WBC; PLATELET COUNT* 217 thou/uL (150-400); POLYS 92.5 %; RBC 4.47 mil/uL (4.50-6.00); RDW-CV 14.6 % (10.5-14.5); WBC 10.8 thou/uL (4.0-11.0)
[2020-04-13 05:42] LABS: ALBUMIN 2.6 g/dL (3.4-5.0); CALCIUM 8.5 mg/dL (8.5-10.1); CREATININE 0.9 mg/dL (0.6-1.3); MAGNESIUM 2.1 mg/dL (1.8-2.4); POTASSIUM 3.9 mmol/L (3.5-5.1); TOTAL BILIRUBIN 0.5 mg/dL (<0.1-1.0); TOTAL PROTEIN 5.8 g/dL (6.4-8.2)
--- NOTE | 2020-04-13 05:54 | NUR ---
PT A&O. MEDS GIVEN ORDERED. PT DENIED PAIN. SOME DRY COUGH. ON 4L BY NC WITH BUBBLER. UP AD LUBNA. NO OTHER CONCERNS AT THIS TIME. WILL CONTINUE TO MONITOR.
[2020-04-13 09:34] VITALS: BP 179/78
--- NOTE | 2020-04-13 13:44 | NUR ---
Nutrition: Pt admitted with pneumothorax. Lung biopsy done. Seen for LOS. Wt is near usual of 175#. BG 146, alb 2.6, prealb 21.7. Takes vitamin C. Regular diet ordered. No nutrition interventions needed at this time. Mild risk at this time.
--- NOTE | 2020-04-13 18:22 | NUR ---
PT A&Ox4. VITALS STABLE. UP AD LUBNA. ON 4-5LO2. TOLERATING DIET. DENIED PAIN. CALL LIGHT WITHIN REACH. WILL CONTINUE TO MONITOR.
[2020-04-13 20:00] VITALS: BP 158/63
--- NOTE | 2020-04-14 05:46 | NUR ---
PT A&O. ON 4L. MEDS GIVEN ORDERED. NO C/O PAIN. SLEEPING/RESTING THROUGH THE NIGHT. UP AD LUBNA. WILL CONTINUE TO MONITOR.
[2020-04-14 08:05] VITALS: BP 162/73
[2020-04-14] MEDS ORDERED: LEVAQUIN 500 M500 M1 PO (13:21)
[2020-04-14] MEDS ORDERED: FLUCONAZOLE 10100 MG PO (13:22)
[2020-04-14] MEDS ORDERED: PREDNISONE 10 M10 MG PO (13:27)
[2020-04-14 13:56] VITALS: BP 162/73
[2020-04-14 14:47] VITALS: BP 162/73
--- NOTE | 2020-04-14 15:20 | NUR ---
PT TO DISCHARGE HOME WITH [facility]. IV ACCESS REMOVED. COPY OF PAPERWORK TO PT AND HIS DAUGHTER WITH EXPLAINATION. BOTH VERBALIZED UNDERSTANDING. PRESCRIPTIONS CALLED TO [facility] BY DR SMITH.
[2020-04-14 16:00] VITALS: BP 173/73
[2020-04-17 02:06] LABS: MYCOPLASMA PNEUMONIA IgG <100 U/mL (0-99); MYCOPLASMA PNEUMONIA IgM <770 U/mL (0-769)
== END 2020-04-14 16:30 | disposition home health service (06) | DRG 180 ==
LOC: M.ERS 13:37 → M.ICU 16:09 → M.TBA-ER 16:09 → M.2W 18:28 → M.ICU 19:33 → M.ORTHSURG 04-07 18:12
PROVIDERS: Family Medicine; Internal Medicine; Internal Medicine Critical Care Medicine; Radiology Radiation Oncology; ADMIT Internal Medicine; ATTEND Internal Medicine
PROC: 0W9930Z Drainage of Right Pleural Cavity with Drainage Device, Percutaneous Approach (ICD-10-PCS; principal; 2020-04-05)
DX: C34.11 Malignant neoplasm of upper lobe, right bronchus or lung (principal); J69.0 Pneumonitis due to inhalation of food and vomit; J96.01 Acute respiratory failure with hypoxia; J93.82 Other air leak; J93.11 Primary spontaneous pneumothorax; I10 Essential (primary) hypertension; E78.00 Pure hypercholesterolemia, unspecified; F17.210 Nicotine dependence, cigarettes, uncomplicated; F41.9 Anxiety disorder, unspecified; N20.0 Calculus of kidney; K46.9 Unspecified abdominal hernia without obstruction or gangrene; R31.9 Hematuria, unspecified; E78.5 Hyperlipidemia, unspecified; J98.01 Acute bronchospasm; D17.71 Benign lipomatous neoplasm of kidney; Z20.828 Contact with and (suspected) exposure to other viral communicable diseases; Z98.41 Cataract extraction status, right eye; Z79.899 Other long term (current) drug therapy; Z88.8 Allergy status to other drugs, medicaments and biological substances; Z80.42 Family history of malignant neoplasm of prostate

== ENCOUNTER → 2020-04-04 | Outpatient (CLI) | payer OTHER ==
[~2020-04-04] MED LIST changes: -FLUCONAZOLE 10100 MG PO; -LEVAQUIN 500 M500 M1 PO; -PREDNISONE 10 M10 MG PO
== END ==
LOC: M.RAD 12:01
PROVIDERS: ATTEND Internal Medicine Critical Care Medicine
DX: J47.9 Bronchiectasis, uncomplicated (principal); J95.811 Postprocedural pneumothorax; J98.4 Other disorders of lung

== ENCOUNTER 2020-04-18 08:37 | Inpatient (IN) | payer OTHER ==
[~2020-04-18] VITALS: Ht 172.7 cm; Wt 81.3 kg
[2020-04-18] VITALS (17 sets, daily range): BP systolic 92–205; BP diastolic 44–96
[~2020-04-18 08:37] MED LIST changes: +FLUCONAZOLE 10100 MG PO; +LEVAQUIN 500 M500 M1 PO; +PREDNISONE 10 M10 MG PO
[2020-04-18 08:59] LABS: BE 4.3 mmol/L (-2 to +3); PO2 72.3 mmHg (75.0-100.0); pH 7.386 (7.340-7.450)
[2020-04-18 09:02] LABS: PCO2 52.3 mmHg (35.0-45.0)
[2020-04-18 09:13] LABS: HEMOGLOBIN 14.1 gm/dL (14.0-18.0); MCH 29.8 pg (26.0-34.0); MCHC 33.6 g/dL (28.0-37.0); MCV 88.8 fL (80.0-100.0); MPV 8.2 fl. (7.2-11.1); NUCLEATED RBCS 0 /100WBC; PLATELET COUNT* 172 thou/uL (150-400); RBC 4.73 mil/uL (4.50-6.00); RDW-CV 15.6 % (10.5-14.5); WBC 17.1 thou/uL (4.0-11.0)
[2020-04-18 09:17] LABS: CALCIUM 8.1 mg/dL (8.5-10.1); CREATININE 1.2 mg/dL (0.6-1.3); POTASSIUM 3.6 mmol/L (3.5-5.1)
[2020-04-18 09:22] LABS: APTT 23.5 Seconds (25.0-31.3); INR 1.1
[2020-04-18 09:28] LABS: ALBUMIN 2.4 g/dL (3.4-5.0); TOTAL BILIRUBIN 0.8 mg/dL (<0.1-1.0); TOTAL PROTEIN 5.8 g/dL (6.4-8.2)
[2020-04-18 10:56] LABS: ABSOLUTE LYMPHOCYTES 0.9 thou/uL (0.8-5.3); ABSOLUTE MONOCYTES 0.2 thou/uL (0.0-1.2); ABSOLUTE NEUTROPHILS 16.1 thou/uL (1.6-8.1); PLATELET ESTIMATE ADEQUATE
--- NOTE | 2020-04-18 13:52 | EKG ---
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 : 1940 Requested By: Christophe Sauer Order Number: [id number] MD: Ravindra Nicole Measurements Intervals [place] Rate: 135 P: 70 GA: 133 QRS: -38 QRSD: 89 T: 67 QT: 287 QTc: 431 Interpretive Statements Sinus tachycardia Multiple premature complexes, supraventricular Probable left atrial enlargement Left axis deviation Abnormal R-wave progression, early transition ST depression, probably rate related Compared to ECG 04/04/2020 14:39:10 Sinus rhythm no longer present Ventricular premature complex(es) no longer present Electronically Signed On 04-18-2020 13:52:02 CDT by Ravindra Nicole [email or web address] <ELECTRONICALLY SIGNED> By: Ravindra Nicole MD, [facility] 04/18/20 1352 0849 0849 Ravindra Nicole MD, [facility] /EPI
[2020-04-18 14:20] LABS: BE 4.1 mmol/L (-2 to +3); PCO2 43.4 mmHg (35.0-45.0); PO2 60.8 mmHg (75.0-100.0)
[2020-04-18 15:40] LABS: TROPONIN-I LEVEL 0.08 ng/mL (<0.06)
--- NOTE | 2020-04-18 17:26 | 2DMMODE ---
[place] [address] 2 D/M-MODE ECHOCARDIOGRAM Name: QUIQUE SCHULTZ Room: [facility] ADM IN R.#: [id number] Admission: 04/18/20 Attend Phys: Juan Carlos Chambers Discharge: Date of : 40 Date of Service: 04/18/20 1725 Report #: [id number] THIS REPORT FOR: cc: Musa Maurer Russell J. DO Liston, Michael J. MD [facility] ~ APPROVED REPORT Study performed: 04/18/2020 14:47:28 EXAM: Comprehensive 2D, Doppler, and color-flow Echocardiogram Patient Location: In-Patient Room #: 004 Status: routine BSA: 1.98 HR: 91 bpm BP: 113/56 mmHg Rhythm: NSR Other Information Study Quality: Good Indications Dyspnea 2D Dimensions IVSd: 10.87 (7-11mm) LVOT Diam: 19.00 (18-24mm) LVDd: 43.17 mm PWd: 9.16 (7-11mm) Ascending Ao: 33.31 (22-36mm) LVDs: 23.56 (25-40mm) Aortic Root: 34.12 mm Volumes Left Atrial Volume (Systole) LA ESV Index: 21.10 mL/m2 Aortic Valve AoV Peak Jaspal.: 1.38 m/s AO Peak Gr.: 7.60 mmHg LVOT Max P.36 mmHg AO Mean Gr.: 4.49 mmHg LVOT Mean P.76 mmHg LVOT Max V: 1.16 m/s AO V2 VTI: 26.09 cm LVOT Mean V: 0.77 m/s KATHY (VTI): 2.41 cm2 LVOT V1 VTI: 22.18 [place] [address] 2 D/M-MODE ECHOCARDIOGRAM Name: QUIQUE SCHULTZ Room: [address] IN ..#: [id number] Admission: 04/18/20 Attend Phys: Juan Carlos Chambers Discharge: Date of : 40 Date of Service: 04/18/20 1725 Report #: [id number] Mitral Valve E/A Ratio: 0.62 MV Decel. Time: 236.20 ms MV E Max Jaspal.: 0.46 m/s MV PHT: 68.50 ms MVA (PHT): 3.21 cm2 TDI E/Lateral E': 6.57 E/Medial E': 6.57 Medial E' Jaspal.: 0.07 m/s Lateral E' Jaspal.: 0.07 m/s Pulmonary Valve PV Peak Jaspal.: 0.80 m/s PV Peak Gr.: 2.56 mmHg Tricuspid Valve RAP Estimate: 5.00 mmHg TR Peak Gr.: 25.48 mmHg RVSP: 30.00 mmHg PA Pressure: 30.00 mmHg Left Ventricle The left ventricle is normal size. No obvious wall motion abnormalities noted. There is normal left ventricular wall thickness. Left ventricular systolic function is normal. LVEF is 65-70%. Grade I - abnormal relaxation pattern. Right Ventricle The right ventricle is normal size. The right ventricular systolic function is normal. Atria Left atrium is mildly dilated. The right atrium size is normal. Aortic Valve The aortic valve is normal in structure. No aortic regurgitation is present. There is no aortic valvular stenosis. Mitral Valve The mitral valve is normal in structure. There is no mitral valve regurgitation noted. No evidence of mitral valve stenosis. Tricuspid Valve The tricuspid valve is normal in structure. Trace tricuspid regurgitation. The RVSP is 30-[place] [address] 2 D/M-MODE ECHOCARDIOGRAM Name: QUIQUE SCHULTZ Room: [address] IN [facility]#: [id number] Admission: 04/18/20 Attend Phys: Juan Carlos Chambers Discharge: Date of : 40 Date of Service: 04/18/20 1725 Report #: [id number] Pulmonic Valve The pulmonary valve is normal in structure. There is no pulmonic valvular regurgitation. Great Vessels The aortic root is normal in size. IVC is normal in size and collapses >50% with inspiration. Pericardium There is no pericardial effusion. <Conclusion> The left ventricle is normal size. There is normal left ventricular wall thickness. Left ventricular systolic function is normal. LVEF is 65-70%. Grade I - abnormal relaxation pattern. No obvious wall motion abnormalities noted. Left atrium is mildly dilated. Trace tricuspid regurgitation. The RVSP is 30-35 mmHg. IVC is normal in size and collapses >50% with inspiration. <ELECTRONICALLY SIGNED> By: Lj Dela Cruz MD, FACC 04/18/20 1725 24 24 Lj Dela Cruz MD, FACC /INF
[2020-04-18 18:03] LABS: ABSOLUTE LYMPHOCYTES 0.2 thou/uL (0.8-5.3); ABSOLUTE MONOCYTES 0.3 thou/uL (0.0-1.2); BASOPHILS 0.3 %; HEMATOCRIT 35.6 % (42.0-52.0); LYMPHOCYTES 1.2 %; MCH 29.9 pg (26.0-34.0); MCHC 33.8 g/dL (28.0-37.0); MCV 88.4 fL (80.0-100.0); MONOCYTES 1.6 %; MPV 8.1 fl. (7.2-11.1); NUCLEATED RBCS 0 /100WBC; PLATELET COUNT* 158 thou/uL (150-400); POLYS 96.9 %; RBC 4.02 mil/uL (4.50-6.00); RDW-CV 15.7 % (10.5-14.5); WBC 18.6 thou/uL (4.0-11.0)
[2020-04-18 18:14] LABS: CALCIUM 7.1 mg/dL (8.5-10.1); CREATININE 1.2 mg/dL (0.6-1.3); MAGNESIUM 1.9 mg/dL (1.8-2.4); PHOSPHORUS* 3.2 mg/dL (2.5-4.9); POTASSIUM 3.6 mmol/L (3.5-5.1)
[2020-04-18 18:30] LABS: BE 6.1 mmol/L (-2 to +3); PCO2 44.6 mmHg (35.0-45.0); PO2 64.5 mmHg (75.0-100.0); pH 7.457 (7.340-7.450)
--- NOTE | 2020-04-18 20:15 | CON ---
[address] [address] CONSULTATION Name: QUIQUE SCHULTZ Room: [address] ADM IN M.R.#: [id number] Admission: 04/18/20 Attend Phys: Nelson Bergman Discharge: Date of : 40 Report #: [id number] THIS REPORT FOR: //name// cc: Musa Maurer Russell J. DO ~ THIS REPORT FOR: //name// CC: Musa Chambers DATE OF SERVICE: 04/18/2020 Consult has been requested by Dr. Chambers. INDICATION FOR CONSULTATION: Qzqem-je-ovvmcoe hypoxemic respiratory failure. 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 The patient has had previous admissions to this hospital. In summary, he has had infiltrates since September where he has been treated with multiple antibiotics. I did perform a bronchoscopy on him earlier, which showed non-small cell carcinoma lung consistent with adenocarcinoma of the lung. However, a definite diagnosis of adenocarcinoma lung was not possible and therefore, the patient subsequently had a CT-guided lung biopsy, the patient did have a pneumothorax after the CT-guided lung biopsy. He then did have a chest tube placed and was admitted to this hospital. We treated him with broad-spectrum antibiotics as well. Initially the patient was on vancomycin and Zosyn. Zosyn was subsequently changed to Augmentin. The patient later on was discharged on Levaquin, please see previous notes for further discussion in this regard. The patient's pneumothorax had essentially resolved by the time he was discharged. There were some persistent infiltrate in the left side as well in addition to on the right side where his adenocarcinoma is. The patient was discharged in a stable condition, however, he was requiring oxygen via nasal cannula upon discharge. The patient is now admitted again with acute shortness of breath and significant desaturation. The patient's daughter was at bedside and I did talk to her. The patient has had significant increase in shortness of breath acutely. He also has had a cough, but there is not much sputum. He did not have chest pain. The patient has not had a fever or chills. He has had some runny nose, but this is longstanding. He is not reported to have a sore throat. He does have some new swelling of lower extremities. Upon arrival, the patient was already on the ventilator. EMS had intubated him due to low O2 saturation in the field. His initial blood pressure is noted to [address], [place] [address] CONSULTATION Name: QUIQUE SCHULTZ Room: [address] IN .R.#: [id number] Admission: 04/18/20 Attend Phys: Nelson Bergman Discharge: Date of : 40 Report #: [id number] be high at 204 systolic. He was started on a propofol infusion. The patient currently is hypotensive with blood pressure of around 80-85 systolic. He is on 60% FiO2 with 5 of PEEP. He is maintaining O2 saturation adequately with this. The patient's chest x-ray shows florid bilateral infiltrates. This is significantly worse than last available chest x-ray. The patient is on the ventilator and therefore is unable to provide a further history or review of systems. PAST MEDICAL HISTORY: Recently diagnosed adenocarcinoma of the lung. Bronchial asthma. The patient did not have a previous history, however during the last admission he had significant bronchospasm consistent with bronchial asthma, recent pneumothorax subsequent to a CT-guided biopsy as above, persistent pulmonary infiltrates, hyperlipidemia, right eye surgery, cataract surgery, retinal surgery, previous renal biopsy performed at , renal cysts, prostatism, kidney stones and his renal function is normal. SOCIAL HISTORY: He was an occasional smoker, but discontinued in 1969 and has not smoked since. No known history of heavy alcohol use or illegal drug use. CURRENT MEDICATIONS: List in [employer] reviewed. HOME MEDICATIONS: List in [employer] reviewed, also see discussion above. FAMILY HISTORY: There is no pertinent family history. His does have cancer. ALLERGIES: HE IS ALLERGIC OR INTOLERANT TO NAPROXEN. PHYSICAL EXAMINATION: GENERAL: He is on a propofol infusion. He is sedated at this time to around RASS-2, his blood pressure is 85/55. VITAL SIGNS: He is on 60% FiO2. I have just switched him over to pressure control. He is on 5 of PEEP with pressure control of 15 and rate of 16. He is maintaining a tidal volume around 500. His temperature is 37.1. He is not overbreathing the ventilator, heart rate 85. HEENT: Head is normocephalic and atraumatic. Endotracheal tube is in good position. NECK: Does not show raised JVP, asymmetry, mass or lymph nodes. CHEST: Symmetrical expansion on inspection and palpation. On auscultation, breath sounds are bilaterally equal. I do hear rales at bilateral bases as well as mid zones. HEART: Regular. There is no murmur. ABDOMEN: Soft and nontender. EXTREMITIES: Lower extremities show 1+ edema. There is no calf tenderness. He is cold and clammy. SKIN: However, is dry and intact. [address] [place] [address] CONSULTATION Name: QUIQUE SCHULTZ Ilya Room: [address] IN .R.#: [id number] Admission: 04/18/20 Attend Phys: Nelson Bergman Discharge: Date of : 40 Report #: [id number] NEUROLOGICAL: Limited due to sedation; however, he does move all extremities bilaterally equally and spontaneously with no focal deficit identified. LABORATORY DATA: The patient's chest x-ray is reviewed. There are florid bilateral infiltrates significantly worse than the patient's previous chest x-ray. The infiltrates themselves could have worsened or alternatively, the patient could have developed acute pulmonary edema/increase in pulmonary vascular congestion in addition. Arterial blood gases in [facility] reviewed, performed twice initially, he did have CO2 retention. Note that the patient previously has not been a CO2 retainer, pO2 is reduced consistent with acute hypoxemic respiratory failure. The patient's CBC as well as chemistries are in [facility] and these are reviewed. Coagulation studies are also in [facility] reviewed, D-dimer, I just ordered, which is pending. COVID-19 antigen is negative. I have ordered a PCR as well, which is pending. ASSESSMENT AND PLAN: 1. Xndjv-ao-plwejeu hypoxemic respiratory failure/acute hypercarbic respiratory failure. The patient does have florid infiltrates on his chest x-ray. The etiologies of these, however, does need to be defined further either. There is significant worsening of infiltrates or the patient has developed increase in pulmonary vascular congestion secondary to congestive heart failure as well. Considering recent pneumothorax, I will attempt to keep his peak airway pressures on the lower side and therefore, I have placed the patient on pressure control ventilation. The ICU staff has been instructed to follow tidal volumes accordingly. We will also follow his arterial blood gases closely. 2. Pulmonary infiltrates. He has florid pulmonary infiltrates as above, pending further evaluation, I will treat him very broadly initially with meropenem + Zyvox + Levaquin. Plan to bronch tommorow if COVID PCR negative. The patient's daughter clearly tells me that the patient was taking all medications at home regularly. Note that we did send him home on Levaquin. 3. Fluid overload/possible congestive heart failure. It is possible that this is the etiology of the patient's decompensation. I have requested an echo, which is being performed now. We will check a proBNP. I will also check a troponin I again now, I have discontinued the patient's IV fluids. The patient's blood pressure is low and therefore, I am unable to administer Lasix. We will plan to give him Lasix later if his blood pressure improves. 4. Edema. We will do venous Dopplers. We will check D-dimer to look at the venous Dopplers and echo report and then decide as to whether a CT chest should be considered. He is, however, higher than average risk for IV dye injury and therefore, I did not order now. 5. Adenocarcinoma lung. See discussion above. 6. Recent pneumothorax. See discussion above. 7. Bronchial asthma. Note that he had severe bronchospasm during the previous [facility] [address] [place] [address] CONSULTATION Name: QUIQUE SCHULTZ Ilya Room: [facility] IN .R.#: [id number] Admission: 04/18/20 Attend Phys: Nelson Bergman Discharge: Date of : 40 Report #: [id number] admission. He is on Solu-Medrol, which I continued. We will continue with DuoNeb as well. We will follow. 8. Deep venous thrombosis prophylaxis, Lovenox. 9. Gastrointestinal prophylaxis, Protonix. 10. Clostridium difficile prophylaxis, Florastor. 11. Hyperglycemia, insulin sliding scale. 12. Hypotension. If blood pressure remains low, then we will start norepinephrine. The patient is critically ill at this time. Total time spent providing critical care to this patient today exceeds 50 minutes. <ELECTRONICALLY SIGNED> By: Nando Temple MD 04/18/202014 1507 [id number] Temple MD /nt
[2020-04-19] VITALS (58 sets, daily range): BP systolic 92–138; BP diastolic 39–68
[2020-04-19 05:12] LABS: ABSOLUTE BASOPHILS 0.2 thou/uL (0.0-0.2); ABSOLUTE LYMPHOCYTES 0.2 thou/uL (0.8-5.3); ABSOLUTE MONOCYTES 0.4 thou/uL (0.0-1.2); ABSOLUTE NEUTROPHILS 16.5 thou/uL (1.6-8.1); BASOPHILS 1.1 %; HEMATOCRIT 34.6 % (42.0-52.0); HEMOGLOBIN 11.9 gm/dL (14.0-18.0); LYMPHOCYTES 1.1 %; MCH 30.1 pg (26.0-34.0); MCHC 34.3 g/dL (28.0-37.0); MCV 87.8 fL (80.0-100.0); MONOCYTES 2.3 %; MPV 8.3 fl. (7.2-11.1); NUCLEATED RBCS 0 /100WBC; PLATELET COUNT* 159 thou/uL (150-400); POLYS 95.5 %; RBC 3.94 mil/uL (4.50-6.00); RDW-CV 15.5 % (10.5-14.5); WBC 17.2 thou/uL (4.0-11.0)
[2020-04-19 06:08] LABS: ALBUMIN 1.9 g/dL (3.4-5.0); CALCIUM 7.6 mg/dL (8.5-10.1); CREATININE 1.1 mg/dL (0.6-1.3); MAGNESIUM 2.3 mg/dL (1.8-2.4); PHOSPHORUS* 2.5 mg/dL (2.5-4.9); POTASSIUM 3.5 mmol/L (3.5-5.1); TOTAL BILIRUBIN 0.5 mg/dL (<0.1-1.0)
[2020-04-19 08:43] LABS: BE 4.8 mmol/L (-2 to +3); PCO2 47.5 mmHg (35.0-45.0); PO2 65.4 mmHg (75.0-100.0)
[2020-04-19 15:53] LABS: BE 5.6 mmol/L (-2 to +3); PO2 65.2 mmHg (75.0-100.0); pH 7.409 (7.340-7.450)
[2020-04-19 15:56] LABS: PCO2 50.8 mmHg (35.0-45.0)
[2020-04-19 16:17] LABS: CREATININE 1.2 mg/dL (0.6-1.3); MAGNESIUM 2.4 mg/dL (1.8-2.4); POTASSIUM 4.1 mmol/L (3.5-5.1)
[2020-04-20] VITALS (36 sets, daily range): BP systolic 106–167; BP diastolic 40–116
[2020-04-20 04:43] LABS: ABSOLUTE BASOPHILS 0.1 thou/uL (0.0-0.2); ABSOLUTE LYMPHOCYTES 0.2 thou/uL (0.8-5.3); ABSOLUTE MONOCYTES 0.5 thou/uL (0.0-1.2); ABSOLUTE NEUTROPHILS 18.2 thou/uL (1.6-8.1); BASOPHILS 0.4 %; HEMATOCRIT 34.3 % (42.0-52.0); HEMOGLOBIN 11.7 gm/dL (14.0-18.0); LYMPHOCYTES 0.9 %; MCH 30.2 pg (26.0-34.0); MCHC 34.1 g/dL (28.0-37.0); MCV 88.6 fL (80.0-100.0); MONOCYTES 2.7 %; MPV 8.3 fl. (7.2-11.1); NUCLEATED RBCS 0 /100WBC; PLATELET COUNT* 163 thou/uL (150-400); RBC 3.87 mil/uL (4.50-6.00); RDW-CV 15.6 % (10.5-14.5); WBC 18.9 thou/uL (4.0-11.0)
[2020-04-20 05:11] LABS: ALBUMIN 2.4 g/dL (3.4-5.0); CALCIUM 8.2 mg/dL (8.5-10.1); CREATININE 1.1 mg/dL (0.6-1.3); MAGNESIUM 2.3 mg/dL (1.8-2.4); POTASSIUM 3.9 mmol/L (3.5-5.1); TOTAL BILIRUBIN 0.5 mg/dL (<0.1-1.0); TOTAL PROTEIN 5.5 g/dL (6.4-8.2)
[2020-04-20 08:09] LABS: BE 5.9 mmol/L (-2 to +3); PO2 65.7 mmHg (75.0-100.0); pH 7.401 (7.340-7.450)
[2020-04-20 08:10] LABS: PCO2 52.7 mmHg (35.0-45.0)
[2020-04-20 16:31] LABS: CALCIUM 8.2 mg/dL (8.5-10.1); MAGNESIUM 2.3 mg/dL (1.8-2.4); POTASSIUM 3.8 mmol/L (3.5-5.1)
[2020-04-21] VITALS (20 sets, daily range): BP systolic 139–174; BP diastolic 51–87
[2020-04-21 04:00] LABS: ABSOLUTE BASOPHILS 0.1 thou/uL (0.0-0.2); ABSOLUTE LYMPHOCYTES 0.2 thou/uL (0.8-5.3); ABSOLUTE MONOCYTES 0.5 thou/uL (0.0-1.2); ABSOLUTE NEUTROPHILS 12.2 thou/uL (1.6-8.1); BASOPHILS 0.5 %; HEMATOCRIT 34.8 % (42.0-52.0); HEMOGLOBIN 11.9 gm/dL (14.0-18.0); LYMPHOCYTES 1.5 %; MCH 29.8 pg (26.0-34.0); MCHC 34.2 g/dL (28.0-37.0); MCV 87.1 fL (80.0-100.0); MONOCYTES 3.7 %; MPV 8.5 fl. (7.2-11.1); NUCLEATED RBCS 0 /100WBC; PLATELET COUNT* 140 thou/uL (150-400); POLYS 94.3 %; RDW-CV 15.1 % (10.5-14.5); WBC 12.9 thou/uL (4.0-11.0)
[2020-04-21 04:22] LABS: ALBUMIN 2.9 g/dL (3.4-5.0); CALCIUM 8.1 mg/dL (8.5-10.1); MAGNESIUM 2.3 mg/dL (1.8-2.4); POTASSIUM 4.4 mmol/L (3.5-5.1); TOTAL BILIRUBIN 0.9 mg/dL (<0.1-1.0); TOTAL PROTEIN 5.9 g/dL (6.4-8.2)
[2020-04-22] VITALS (23 sets, daily range): BP systolic 130–163; BP diastolic 49–83
[2020-04-22 04:17] LABS: ABSOLUTE LYMPHOCYTES 0.2 thou/uL (0.8-5.3); ABSOLUTE MONOCYTES 0.6 thou/uL (0.0-1.2); ABSOLUTE NEUTROPHILS 12.8 thou/uL (1.6-8.1); HEMATOCRIT 36.2 % (42.0-52.0); HEMOGLOBIN 12.3 gm/dL (14.0-18.0); LYMPHOCYTES 1.4 %; MCH 29.8 pg (26.0-34.0); MCHC 33.9 g/dL (28.0-37.0); MONOCYTES 4.3 %; MPV 8.7 fl. (7.2-11.1); NUCLEATED RBCS 0 /100WBC; PLATELET COUNT* 127 thou/uL (150-400); POLYS 94.3 %; RBC 4.11 mil/uL (4.50-6.00); RDW-CV 15.3 % (10.5-14.5); WBC 13.6 thou/uL (4.0-11.0)
[2020-04-22 04:37] LABS: PROTIME 10.8 Seconds (9.20-11.50)
[2020-04-22 05:06] LABS: ALBUMIN 2.6 g/dL (3.4-5.0); CALCIUM 8.2 mg/dL (8.5-10.1); CREATININE 0.8 mg/dL (0.6-1.3); POTASSIUM 4.2 mmol/L (3.5-5.1); TOTAL BILIRUBIN 0.7 mg/dL (<0.1-1.0); TOTAL PROTEIN 5.1 g/dL (6.4-8.2)
[2020-04-22 05:12] LABS: BE 5.4 mmol/L (-2 to +3); PCO2 40.5 mmHg (35.0-45.0); PO2 70.1 mmHg (75.0-100.0); pH 7.478 (7.340-7.450)
[2020-04-23] VITALS (24 sets, daily range): BP systolic 104–159; BP diastolic 50–80
[2020-04-23 04:30] LABS: CREATININE 0.8 mg/dL (0.6-1.3); POTASSIUM 4.8 mmol/L (3.5-5.1)
[2020-04-24] VITALS (23 sets, daily range): BP systolic 103–154; BP diastolic 50–75
[2020-04-24 05:13] LABS: HEMATOCRIT 39.6 % (42.0-52.0); HEMOGLOBIN 13.4 gm/dL (14.0-18.0); MCH 29.7 pg (26.0-34.0); MCHC 33.8 g/dL (28.0-37.0); MCV 87.7 fL (80.0-100.0); MPV 8.3 fl. (7.2-11.1); NUCLEATED RBCS 0 /100WBC; PLATELET COUNT* 139 thou/uL (150-400); RBC 4.51 mil/uL (4.50-6.00); RDW-CV 15.5 % (10.5-14.5); WBC 19.4 thou/uL (4.0-11.0)
[2020-04-24 05:28] LABS: PHOSPHORUS* 3.5 mg/dL (2.5-4.9)
[2020-04-24 05:34] LABS: ALBUMIN 2.5 g/dL (3.4-5.0); CALCIUM 8.2 mg/dL (8.5-10.1); MAGNESIUM 2.3 mg/dL (1.8-2.4); POTASSIUM 4.2 mmol/L (3.5-5.1); TOTAL BILIRUBIN 1.1 mg/dL (<0.1-1.0); TOTAL PROTEIN 5.3 g/dL (6.4-8.2)
[2020-04-24 05:37] LABS: PROTIME 10.7 Seconds (9.20-11.50)
[2020-04-24 05:52] LABS: ABSOLUTE LYMPHOCYTES 0.4 thou/uL (0.8-5.3); ABSOLUTE MONOCYTES 0.4 thou/uL (0.0-1.2); ABSOLUTE NEUTROPHILS 18.6 thou/uL (1.6-8.1)
[2020-04-24 05:53] LABS: ANISOCYTOSIS 1+; PLATELET ESTIMATE DECREASED; POIKILOCYTOSIS 1+
[2020-04-24 12:12] LABS: URINE BILIRUBIN NEGATIVE (Negative); URINE BLOOD 3+ (Negative); URINE CLARITY CLEAR; URINE COLOR YELLOW; URINE GLUCOSE-RANDOM NEGATIVE (Negative); URINE KETONES NEGATIVE (Negative); URINE LEUKOCYTES-REFLEX NEGATIVE (Negative); URINE NITRITE-REFLEX NEGATIVE (Negative); URINE PROTEIN NEGATIVE (Negative); URINE SPECIFIC GRAVITY 1.025 (1.005-1.030); URINE UROBILINOGEN 0.2 E.U./dl (0.2-1.0)
[2020-04-24 12:19] LABS: SQUAMOUS NONE SEEN /LPF (0-3); URINE WBC-REFLEX None Seen /HPF (0-5)
[2020-04-24 12:20] LABS: BACTERIA-REFLEX >30 Many /HPF (None Seen); CASTS None Seen /LPF (None Seen); CRYSTALS None Seen /LPF (None Seen); MUCUS None Seen strn/LPF (None Seen); URINE RBC 3-10 Few /HPF (0-2)
[2020-04-24 17:43] LABS: CALCIUM 8.8 mg/dL (8.5-10.1); MAGNESIUM 2.4 mg/dL (1.8-2.4); POTASSIUM 4.2 mmol/L (3.5-5.1)
[2020-04-25] VITALS (22 sets, daily range): BP systolic 143–192; BP diastolic 60–91
[2020-04-25 05:48] LABS: MCH 29.5 pg (26.0-34.0); NUCLEATED RBCS 0 /100WBC
[2020-04-25 05:50] LABS: ABSOLUTE LYMPHOCYTES 0.3 thou/uL (0.8-5.3); ABSOLUTE MONOCYTES 0.5 thou/uL (0.0-1.2); BASOPHILS 0.2 %; HEMATOCRIT 40.5 % (42.0-52.0); HEMOGLOBIN 13.7 gm/dL (14.0-18.0); LYMPHOCYTES 1.6 %; MCHC 33.9 g/dL (28.0-37.0); MCV 87.1 fL (80.0-100.0); MONOCYTES 3.4 %; MPV 8.4 fl. (7.2-11.1); PLATELET COUNT* 129 thou/uL (150-400); POLYS 94.8 %; RBC 4.65 mil/uL (4.50-6.00); RDW-CV 15.5 % (10.5-14.5); WBC 15.8 thou/uL (4.0-11.0)
[2020-04-25 06:03] LABS: ALBUMIN 2.5 g/dL (3.4-5.0); CALCIUM 8.1 mg/dL (8.5-10.1); MAGNESIUM 2.3 mg/dL (1.8-2.4); POTASSIUM 4.2 mmol/L (3.5-5.1); TOTAL BILIRUBIN 1.1 mg/dL (<0.1-1.0); TOTAL PROTEIN 5.5 g/dL (6.4-8.2)
[2020-04-26] VITALS (25 sets, daily range): BP systolic 121–199; BP diastolic 43–85
[2020-04-26 04:58] LABS: ABSOLUTE LYMPHOCYTES 0.3 thou/uL (0.8-5.3); ABSOLUTE MONOCYTES 0.4 thou/uL (0.0-1.2); ABSOLUTE NEUTROPHILS 13.5 thou/uL (1.6-8.1); BASOPHILS 0.1 %; HEMATOCRIT 40.7 % (42.0-52.0); HEMOGLOBIN 13.8 gm/dL (14.0-18.0); LYMPHOCYTES 2.4 %; MCH 29.5 pg (26.0-34.0); MCHC 33.8 g/dL (28.0-37.0); MCV 87.3 fL (80.0-100.0); MONOCYTES 2.5 %; MPV 8.2 fl. (7.2-11.1); NUCLEATED RBCS 0 /100WBC; PLATELET COUNT* 119 thou/uL (150-400); RBC 4.66 mil/uL (4.50-6.00); RDW-CV 15.1 % (10.5-14.5); WBC 14.2 thou/uL (4.0-11.0)
[2020-04-26 05:12] LABS: ALBUMIN 2.5 g/dL (3.4-5.0); CREATININE 0.8 mg/dL (0.6-1.3); MAGNESIUM 2.1 mg/dL (1.8-2.4); POTASSIUM 3.8 mmol/L (3.5-5.1); TOTAL BILIRUBIN 1.4 mg/dL (<0.1-1.0); TOTAL PROTEIN 5.2 g/dL (6.4-8.2)
[2020-04-26 18:11] LABS: CALCIUM 8.3 mg/dL (8.5-10.1); CREATININE 0.9 mg/dL (0.6-1.3); PHOSPHORUS* 2.8 mg/dL (2.5-4.9); POTASSIUM 3.6 mmol/L (3.5-5.1)
[2020-04-27] VITALS (46 sets, daily range): BP systolic 127–185; BP diastolic 45–116
[2020-04-27 05:19] LABS: HEMATOCRIT 38.6 % (42.0-52.0); HEMOGLOBIN 12.9 gm/dL (14.0-18.0); MCH 29.5 pg (26.0-34.0); MCHC 33.5 g/dL (28.0-37.0); MCV 88.2 fL (80.0-100.0); MPV 8.5 fl. (7.2-11.1); NUCLEATED RBCS 0 /100WBC; PLATELET COUNT* 114 thou/uL (150-400); RBC 4.38 mil/uL (4.50-6.00); WBC 14.7 thou/uL (4.0-11.0)
[2020-04-27 05:28] LABS: PHOSPHORUS* 2.7 mg/dL (2.5-4.9)
[2020-04-27 05:33] LABS: ALBUMIN 2.4 g/dL (3.4-5.0); CALCIUM 8.1 mg/dL (8.5-10.1); MAGNESIUM 2.2 mg/dL (1.8-2.4); POTASSIUM 3.8 mmol/L (3.5-5.1); TOTAL BILIRUBIN 1.5 mg/dL (<0.1-1.0); TOTAL PROTEIN 5.1 g/dL (6.4-8.2)
[2020-04-27 06:28] LABS: ABSOLUTE LYMPHOCYTES 0.6 thou/uL (0.8-5.3); ABSOLUTE MONOCYTES 0.4 thou/uL (0.0-1.2); ABSOLUTE NEUTROPHILS 13.7 thou/uL (1.6-8.1); PLATELET ESTIMATE DECREASED
[2020-04-27 12:40] LABS: URINE BILIRUBIN NEGATIVE (Negative); URINE BLOOD 3+ (Negative); URINE CLARITY CLEAR; URINE COLOR YELLOW; URINE GLUCOSE-RANDOM NEGATIVE (Negative); URINE KETONES NEGATIVE (Negative); URINE LEUKOCYTES-REFLEX NEGATIVE (Negative); URINE NITRITE-REFLEX NEGATIVE (Negative); URINE PROTEIN TRACE (Negative); URINE SPECIFIC GRAVITY 1.025 (1.005-1.030); URINE UROBILINOGEN 0.2 E.U./dl (0.2-1.0)
[2020-04-27 12:46] LABS: CASTS None Seen /LPF (None Seen); CRYSTALS None Seen /LPF (None Seen); MUCUS None Seen strn/LPF (None Seen); SQUAMOUS NONE SEEN /LPF (0-3); URINE RBC >20 Many /HPF (0-2); URINE WBC-REFLEX 0-5 Rare /HPF (0-5)
[2020-04-27 18:17] LABS: CALCIUM 8.2 mg/dL (8.5-10.1); CREATININE 1.2 mg/dL (0.6-1.3); TOTAL BILIRUBIN 2.4 mg/dL (<0.1-1.0); TOTAL PROTEIN 5.5 g/dL (6.4-8.2)
[2020-04-28] VITALS (45 sets, daily range): BP systolic 134–188; BP diastolic 54–88
[2020-04-28 03:25] LABS: ABSOLUTE LYMPHOCYTES 0.3 thou/uL (0.8-5.3); ABSOLUTE MONOCYTES 0.7 thou/uL (0.0-1.2); ABSOLUTE NEUTROPHILS 15.3 thou/uL (1.6-8.1); BASOPHILS 0.1 %; HEMOGLOBIN 12.5 gm/dL (14.0-18.0); MCH 29.3 pg (26.0-34.0); MCHC 33.7 g/dL (28.0-37.0); MCV 87.1 fL (80.0-100.0); MPV 8.2 fl. (7.2-11.1); NUCLEATED RBCS 0 /100WBC; PLATELET COUNT* 112 thou/uL (150-400); POLYS 93.9 %; RBC 4.25 mil/uL (4.50-6.00); RDW-CV 15.7 % (10.5-14.5); WBC 16.3 thou/uL (4.0-11.0)
[2020-04-28 03:56] LABS: BE 6.9 mmol/L (-2 to +3); PCO2 36.5 mmHg (35.0-45.0)
[2020-04-28 04:02] LABS: PO2 56.1 mmHg (75.0-100.0)
[2020-04-28 04:23] LABS: ALBUMIN 2.8 g/dL (3.4-5.0); CALCIUM 8.4 mg/dL (8.5-10.1); CREATININE 0.9 mg/dL (0.6-1.3); MAGNESIUM 2.2 mg/dL (1.8-2.4); POTASSIUM 3.9 mmol/L (3.5-5.1); TOTAL BILIRUBIN 2.6 mg/dL (<0.1-1.0); TOTAL PROTEIN 5.2 g/dL (6.4-8.2)
[2020-04-29] VITALS (44 sets, daily range): BP systolic 118–165; BP diastolic 37–120
[2020-04-29 05:12] LABS: ABSOLUTE LYMPHOCYTES 0.3 thou/uL (0.8-5.3); ABSOLUTE MONOCYTES 0.6 thou/uL (0.0-1.2); ABSOLUTE NEUTROPHILS 15.7 thou/uL (1.6-8.1); HEMATOCRIT 34.4 % (42.0-52.0); HEMOGLOBIN 11.7 gm/dL (14.0-18.0); LYMPHOCYTES 1.9 %; MCH 29.9 pg (26.0-34.0); MCHC 34.1 g/dL (28.0-37.0); MCV 87.7 fL (80.0-100.0); MONOCYTES 3.9 %; MPV 8.5 fl. (7.2-11.1); NUCLEATED RBCS 0 /100WBC; PLATELET COUNT* 92 thou/uL (150-400); POLYS 94.2 %; RBC 3.93 mil/uL (4.50-6.00); RDW-CV 15.2 % (10.5-14.5); WBC 16.6 thou/uL (4.0-11.0)
[2020-04-29 05:27] LABS: ALBUMIN 2.4 g/dL (3.4-5.0); CALCIUM 8.1 mg/dL (8.5-10.1); MAGNESIUM 2.1 mg/dL (1.8-2.4); POTASSIUM 3.8 mmol/L (3.5-5.1); TOTAL BILIRUBIN 1.7 mg/dL (<0.1-1.0); TOTAL PROTEIN 4.8 g/dL (6.4-8.2)
[2020-04-30] VITALS (46 sets, daily range): BP systolic 126–176; BP diastolic 54–87
[2020-04-30 05:02] LABS: HEMATOCRIT 32.5 % (42.0-52.0); MCH 29.5 pg (26.0-34.0); MCHC 33.8 g/dL (28.0-37.0); MCV 87.4 fL (80.0-100.0); MPV 8.8 fl. (7.2-11.1); NUCLEATED RBCS 0 /100WBC; PLATELET COUNT* 84 thou/uL (150-400); RBC 3.72 mil/uL (4.50-6.00); RDW-CV 15.5 % (10.5-14.5); WBC 15.3 thou/uL (4.0-11.0)
[2020-04-30 05:17] LABS: ALBUMIN 2.3 g/dL (3.4-5.0); MAGNESIUM 2.1 mg/dL (1.8-2.4); PHOSPHORUS* 3.1 mg/dL (2.5-4.9); TOTAL BILIRUBIN 1.2 mg/dL (<0.1-1.0); TOTAL PROTEIN 4.5 g/dL (6.4-8.2)
[2020-04-30 06:23] LABS: ABSOLUTE LYMPHOCYTES 0.5 thou/uL (0.8-5.3); ABSOLUTE MONOCYTES 0.8 thou/uL (0.0-1.2); ABSOLUTE NEUTROPHILS 14.1 thou/uL (1.6-8.1)
[2020-04-30 06:24] LABS: ANISOCYTOSIS 1+; PLATELET ESTIMATE DECREASED; POIKILOCYTOSIS 1+
[2020-04-30 12:10] LABS: INR 1.1; PROTIME 11.3 Seconds (9.20-11.50)
[2020-05-01] VITALS (39 sets, daily range): BP systolic 130–182; BP diastolic 65–104
[2020-05-01 04:13] LABS: ABSOLUTE LYMPHOCYTES 0.4 thou/uL (0.8-5.3); ABSOLUTE MONOCYTES 0.5 thou/uL (0.0-1.2); ABSOLUTE NEUTROPHILS 16.8 thou/uL (1.6-8.1); BASOPHILS 0.1 %; HEMATOCRIT 34.4 % (42.0-52.0); HEMOGLOBIN 11.8 gm/dL (14.0-18.0); LYMPHOCYTES 2.2 %; MCH 29.7 pg (26.0-34.0); MCHC 34.2 g/dL (28.0-37.0); MCV 86.9 fL (80.0-100.0); MPV 8.9 fl. (7.2-11.1); NUCLEATED RBCS 0 /100WBC; PLATELET COUNT* 104 thou/uL (150-400); POLYS 94.7 %; RBC 3.96 mil/uL (4.50-6.00); RDW-CV 15.5 % (10.5-14.5); WBC 17.7 thou/uL (4.0-11.0)
[2020-05-01 04:30] LABS: ALBUMIN 2.6 g/dL (3.4-5.0); CALCIUM 8.1 mg/dL (8.5-10.1); CREATININE 0.8 mg/dL (0.6-1.3); MAGNESIUM 2.1 mg/dL (1.8-2.4); POTASSIUM 3.8 mmol/L (3.5-5.1); TOTAL BILIRUBIN 1.3 mg/dL (<0.1-1.0)
[2020-05-01 05:01] LABS: PHOSPHORUS* 3.3 mg/dL (2.5-4.9)
[2020-05-01 16:37] LABS: CALCIUM 8.7 mg/dL (8.5-10.1); POTASSIUM 4.4 mmol/L (3.5-5.1)
[2020-05-01 22:06] LABS: MYCOPLASMA PNEUMONIA IgG <100 U/mL (0-99); MYCOPLASMA PNEUMONIA IgM <770 U/mL (0-769)
[2020-05-02] VITALS (34 sets, daily range): BP systolic 107–157; BP diastolic 43–93
[2020-05-02 04:30] LABS: ABSOLUTE LYMPHOCYTES 0.5 thou/uL (0.8-5.3); ABSOLUTE MONOCYTES 0.8 thou/uL (0.0-1.2); HEMATOCRIT 40.1 % (42.0-52.0); HEMOGLOBIN 13.5 gm/dL (14.0-18.0); MCH 29.4 pg (26.0-34.0); MCHC 33.7 g/dL (28.0-37.0); MCV 87.2 fL (80.0-100.0); MONOCYTES 3.5 %; MPV 9.1 fl. (7.2-11.1); NUCLEATED RBCS 0 /100WBC; PLATELET COUNT* 165 thou/uL (150-400); POLYS 94.5 %; RBC 4.59 mil/uL (4.50-6.00); RDW-CV 15.5 % (10.5-14.5); WBC 22.3 thou/uL (4.0-11.0)
[2020-05-02 04:56] LABS: ALBUMIN 3.1 g/dL (3.4-5.0); CALCIUM 8.6 mg/dL (8.5-10.1); MAGNESIUM 2.2 mg/dL (1.8-2.4); POTASSIUM 3.9 mmol/L (3.5-5.1); TOTAL BILIRUBIN 1.5 mg/dL (<0.1-1.0)
[2020-05-02 06:12] LABS: PHOSPHORUS* 3.9 mg/dL (2.5-4.9)
[2020-05-03] VITALS (27 sets, daily range): BP systolic 103–150; BP diastolic 55–82
[2020-05-03 04:56] LABS: ABSOLUTE LYMPHOCYTES 0.3 thou/uL (0.8-5.3); ABSOLUTE MONOCYTES 0.5 thou/uL (0.0-1.2); ABSOLUTE NEUTROPHILS 18.2 thou/uL (1.6-8.1); BASOPHILS 0.1 %; HEMATOCRIT 37.7 % (42.0-52.0); HEMOGLOBIN 12.8 gm/dL (14.0-18.0); LYMPHOCYTES 1.4 %; MCH 29.6 pg (26.0-34.0); MCHC 33.9 g/dL (28.0-37.0); MCV 87.5 fL (80.0-100.0); MONOCYTES 2.5 %; MPV 9.9 fl. (7.2-11.1); NUCLEATED RBCS 0 /100WBC; PLATELET COUNT* 189 thou/uL (150-400); RBC 4.31 mil/uL (4.50-6.00); RDW-CV 15.8 % (10.5-14.5)
[2020-05-03 05:30] LABS: ALBUMIN 2.7 g/dL (3.4-5.0); CALCIUM 8.5 mg/dL (8.5-10.1); CREATININE 1.1 mg/dL (0.6-1.3); MAGNESIUM 2.2 mg/dL (1.8-2.4); POTASSIUM 4.8 mmol/L (3.5-5.1); TOTAL BILIRUBIN 1.1 mg/dL (<0.1-1.0); TOTAL PROTEIN 5.6 g/dL (6.4-8.2)
--- NOTE | 2020-05-03 12:16 | EKG ---
[place] [address] ELECTROCARDIOGRAM REPORT Name: QUIQUE SCHULTZ Room: [address] ADM IN M.R.#: [id number] Admission: 04/18/20 Attend Phys: Juan Carlos Chambers Discharge: Date of : 40 Date of Service: 05/02/201812 Report #: [id number] THIS REPORT FOR: //name// [facility] Test Date: 2020-05-02 Test Time: 18:13:48 Pat Name: QUIQUE SCHULTZ Department: Room: [address] Gender: M Vp Organizational Development: Basil Adam : 1940 Requested By: Teddy Baker Order Number: [id number] Tiffanie MD: Lj Dela Cruz Measurements Intervals [place] Rate: 106 P: 61 HI: 128 QRS: -42 QRSD: 77 T: 87 QT: 322 QTc: 428 Interpretive Statements Sinus tachycardia Premature atrial complex Left anterior fascicular block Left ventricular hypertrophy Compared to ECG 04/18/2020 08:49:18 Left anterior fascicular block now present Left ventricular hypertrophy now present ST (T wave) deviation no longer present Electronically Signed On 05-03-2020 12:16:40 CDT by Lj Dela Cruz [email or web address] <ELECTRONICALLY SIGNED> By: Lj Dela Cruz MD, FAC 05/03/20 1216 12 12 Lj Dela Cruz MD, [facility] /EPI
[2020-05-04] VITALS (22 sets, daily range): BP systolic 104–144; BP diastolic 50–76
[2020-05-04 05:18] LABS: HEMATOCRIT 34.5 % (42.0-52.0); HEMOGLOBIN 11.8 gm/dL (14.0-18.0); MCH 29.8 pg (26.0-34.0); MCHC 34.3 g/dL (28.0-37.0); MCV 86.9 fL (80.0-100.0); MPV 8.8 fl. (7.2-11.1); NUCLEATED RBCS 0 /100WBC; PLATELET COUNT* 193 thou/uL (150-400); RBC 3.97 mil/uL (4.50-6.00); RDW-CV 15.9 % (10.5-14.5); WBC 15.5 thou/uL (4.0-11.0)
[2020-05-04 05:39] LABS: PHOSPHORUS* 3.8 mg/dL (2.5-4.9)
[2020-05-04 05:59] LABS: ALBUMIN 2.3 g/dL (3.4-5.0); CALCIUM 8.4 mg/dL (8.5-10.1); CREATININE 1.1 mg/dL (0.6-1.3); MAGNESIUM 2.2 mg/dL (1.8-2.4); POTASSIUM 4.4 mmol/L (3.5-5.1); TOTAL BILIRUBIN 0.9 mg/dL (<0.1-1.0); TOTAL PROTEIN 5.2 g/dL (6.4-8.2)
[2020-05-04 07:00] LABS: ABSOLUTE LYMPHOCYTES 0.3 thou/uL (0.8-5.3); ABSOLUTE NEUTROPHILS 15.2 thou/uL (1.6-8.1); ATYPICAL LYMPHS 1 %; PLATELET ESTIMATE ADEQUATE
[2020-05-04 10:00] LABS: BE 0.6 mmol/L (-2 to +3); PO2 60.5 mmHg (75.0-100.0); pH 7.464 (7.340-7.450)
[2020-05-07 19:07] LABS: ANA INTERPRETATION Negative (())
== END 2020-05-04 18:45 | disposition short-term general hospital (02) | DRG 207 ==
LOC: M.ERS 08:37 → M.ICU 09:41 → M.TBA-ER 09:41 → M.ICU 13:22
PROVIDERS: Family Medicine; Internal Medicine; Internal Medicine Critical Care Medicine; Pediatrics; ADMIT Internal Medicine; ATTEND Internal Medicine
PROC: 0BH17EZ Insertion of Endotracheal Airway into Trachea, Via Natural or Artificial Opening (ICD-10-PCS; principal; 2020-04-18)
PROC: 02HV33Z Insertion of Infusion Device into Superior Vena Cava, Percutaneous Approach (ICD-10-PCS; principal; 2020-04-18)
PROC: 5A1955Z Respiratory Ventilation, Greater than 96 Consecutive Hours (ICD-10-PCS; principal; 2020-04-18)
PROC: 5A09357 Assistance with Respiratory Ventilation, Less than 24 Consecutive Hours, Continuous Positive Airway Pressure (ICD-10-PCS; 2020-04-24)
PROC: 5A09357 Assistance with Respiratory Ventilation, Less than 24 Consecutive Hours, Continuous Positive Airway Pressure (ICD-10-PCS; 2020-04-26)
PROC: 5A09357 Assistance with Respiratory Ventilation, Less than 24 Consecutive Hours, Continuous Positive Airway Pressure (ICD-10-PCS; 2020-04-27)
PROC: 5A09357 Assistance with Respiratory Ventilation, Less than 24 Consecutive Hours, Continuous Positive Airway Pressure (ICD-10-PCS; 2020-04-28)
PROC: 5A09357 Assistance with Respiratory Ventilation, Less than 24 Consecutive Hours, Continuous Positive Airway Pressure (ICD-10-PCS; 2020-04-29)
PROC: 5A09357 Assistance with Respiratory Ventilation, Less than 24 Consecutive Hours, Continuous Positive Airway Pressure (ICD-10-PCS; 2020-04-30)
PROC: 5A09357 Assistance with Respiratory Ventilation, Less than 24 Consecutive Hours, Continuous Positive Airway Pressure (ICD-10-PCS; 2020-05-01)
PROC: 5A09357 Assistance with Respiratory Ventilation, Less than 24 Consecutive Hours, Continuous Positive Airway Pressure (ICD-10-PCS; 2020-05-02)
PROC: 5A09357 Assistance with Respiratory Ventilation, Less than 24 Consecutive Hours, Continuous Positive Airway Pressure (ICD-10-PCS; 2020-05-03)
PROC: 5A09357 Assistance with Respiratory Ventilation, Less than 24 Consecutive Hours, Continuous Positive Airway Pressure (ICD-10-PCS; 2020-05-04)
DX: J96.21 Acute and chronic respiratory failure with hypoxia (principal); J18.9 Pneumonia, unspecified organism; K85.90 Acute pancreatitis without necrosis or infection, unspecified; C34.90 Malignant neoplasm of unspecified part of unspecified bronchus or lung; J44.1 Chronic obstructive pulmonary disease with (acute) exacerbation; N17.9 Acute kidney failure, unspecified; E46 Unspecified protein-calorie malnutrition; R65.10 Systemic inflammatory response syndrome (SIRS) of non-infectious origin without acute organ dysfunction; I50.30 Unspecified diastolic (congestive) heart failure; J96.22 Acute and chronic respiratory failure with hypercapnia; E78.00 Pure hypercholesterolemia, unspecified; E87.70 Fluid overload, unspecified; R73.9 Hyperglycemia, unspecified; I95.9 Hypotension, unspecified; N18.3 Chronic kidney disease, stage 3 (moderate); E78.5 Hyperlipidemia, unspecified; J45.909 Unspecified asthma, uncomplicated; B37.9 Candidiasis, unspecified; K80.20 Calculus of gallbladder without cholecystitis without obstruction; D69.6 Thrombocytopenia, unspecified; Z20.828 Contact with and (suspected) exposure to other viral communicable diseases; Z79.899 Other long term (current) drug therapy; Z88.8 Allergy status to other drugs, medicaments and biological substances; Z98.49 Cataract extraction status, unspecified eye; Z68.27 Body mass index [BMI] 27.0-27.9, adult; Z98.42 Cataract extraction status, left eye; Z98.41 Cataract extraction status, right eye; Z87.891 Personal history of nicotine dependence